=== PATIENT | male | born 1960 | race Caucasian/White ===

== ENCOUNTER → 2016-07-23 | Outpatient (CLI) | payer OTHER ==
[~2016-07-23] MED LIST: ADVAIR 1001 DISK W/D PO; ALBUTEROL17 GM INH; ALBUTEROL2.5 MG/0.5 IH; ASPIRIN81 MG PO; CHLORTHALIDONE25 MG PO; LISINOPRIL PO; LISINOPRIL10 MG PO; MOBIC; NO MEDICATIONS; NORVASC; PREDNISONE PO; PREDNISONE10 MG/DOSE PO; PRILOSEC; PRILOSEC PO; ULTRACET TABLE1 EACH PO; VIBRAMYCIN100 M1 PO; VISTARIL
--- NOTE | ~2016-07-23 | PFT ---
[id number] [facility] [address] [facility]. [place], [place] [address] [id number] O MR#: [id number] NAME: SOPHY SCHAFER ROOM: SEX: Haylee STUDY DATE/TIME: 07/23/2016 : 1960 AGE: 56 STUDY DESCRIPTION: Attending Physician: Melissa Mathews A.P.R.N. Referring Physician: Melissa Mathews A.P.R.N. Primary Care Physician: Chiquita Massey M.D. PULMONARY DIAGNOSTIC REPORT EXAM Pulmonary function test FINDINGS 1. Test meets ATS criteria for acceptability/repeatability. 2. Please see scanned sheet for flow-volume loops and actual lung volume values. 3. Spirometry shows moderate obstruction without significant bronchodilator response. 4. Lung volumes show significant airtrapping. 5. Diffusion capacity is moderately decreased. It corrects for alveolar ventilation. This is consistent with moderate COPD. Dictated by... Roderick Valle TD: 08/21/2016 21:03 JOB #: [id number] PULMONARY DIAGNOSTIC REPORT Page 1 of 1
--- NOTE | ~2016-07-23 | CR63 ---
[facility] A Service of [facility] & [facility] RADIOLOGY TEXT RESULTS PATIENT: SOPHY SCHAFER LOCATION: [facility] : 62 UNIT #: [id number] AGE: [address]: Melissa Mathews SEX: M ORDER DR: [id number] [facility] [address] [place], [place] [address] [id number] O MR#: [id number] Acc #: [id number] NAME: SOPHY SCHAFER : 1960 SEX: M STUDY DATE/TIME: 07/23/2016 11:27 UNIT: [facility] ROOM: STUDY DESCRIPTION: CR Chest 2 View Attending Physician: Melissa Mathews A.P.R.N. Referring Physician: Melissa Mathews A.P.R.N. Ordering Physician: Melissa Mathews A.P.R.N. Primary Care Physician: Chiquita Massey M.D. MEDICAL IMAGING REPORT This report is preliminary unless electronic signature is present EXAM Chest 2 views 07/23/2016 1127 hours HISTORY 55-year-old man with history of smoking, COPD complaining of shortness of air today. COMPARISON 03/21/2014 FINDINGS Upright PA and lateral views of the chest demonstrate normal cardiac, mediastinal and hilar contours. Lungs are hyperinflated but clear. There are old healed right rib fractures unchanged. No acute bone lesions. IMPRESSION Emphysematous and benign calcified granulomatous changes appear similar to 03/21/2014. There are no acute cardiopulmonary findings. Old healed right rib fractures are stable. Dictated by... Cristine Levine M.D. THIS IS AN ELECTRONICALLY VERIFIED REPORT Cristine Levine M.D. at 07/23/2016 1:43 PM SMM/kirstenr TD: 07/23/2016 13:00 JOB #: [id number] MEDICAL IMAGING REPORT Page 1 of 1 COPY
== END | disposition home or self-care (01) ==
LOC: CRC 10:32
DX: R06.00 Dyspnea, unspecified (principal); J44.9 Chronic obstructive pulmonary disease, unspecified; R06.83 Snoring; Z72.0 Tobacco use; R06.02 Shortness of breath; J84.10 Pulmonary fibrosis, unspecified
CPT/HCPCS: 71020; 94060; 94726; 94729

== ENCOUNTER 2016-08-07 17:42 | Inpatient (IN) | payer OTHER ==
--- NOTE | ~2016-08-07 | CR72 ---
[facility] A Service of [facility] & [facility] RADIOLOGY TEXT RESULTS PATIENT: SOPHY SCHAFER LOCATION: [facility] 468-01 : [birth year] UNIT #: [id number] AGE: [address]: Chiquita Massey MD SEX: M ORDER DR: [id number] [facility] [address] [facility]. [place], [place] [address] [id number] I MR#: [id number] Acc #: [id number] NAME: SOPHY SCHAFER : 1960 SEX: M STUDY DATE/TIME: 09/01/2016 4:49 UNIT: [facility] ROOM: [facility] STUDY DESCRIPTION: CR Chest Single View Portable Attending Physician: Chiquita Massey M.D. Ordering Physician: Aman Schreiber Primary Care Physician: Chiquita Massey M.D. MEDICAL IMAGING REPORT This report is preliminary unless electronic signature is present EXAM AP portable chest 09/01/2016 04:49 HISTORY 56-year-old male with pneumonia, cavitary lesion left lung. Shortness of breath and cough. Symptoms began 08/07/2016. History of smoking. COMPARISON PA and lateral chest radiograph 08/29/2016, CT chest with contrast 08/27/2016. FINDINGS Cavitary lesion in the left upper lobe with surrounding alveolar disease is again noted. It is not thought to be significantly changed. Right lung remains clear. No pneumothorax or pleural effusion. Heart size is within normal limits. Emphysematous changes are demonstrated better advantage on previous chest CT. Old right rib fractures incidentally noted. IMPRESSION 1. Thick-walled cavitary focus in the left upper lobe with surrounding parenchymal or airspace disease without significant change. 2. Emphysema. Dictated by... Milka Barbosa M.D. THIS IS AN ELECTRONICALLY VERIFIED REPORT Milka Barbosa M.D. at 09/01/2016 9:58 PM Peggy TD: 09/01/2016 06:30 JOB #: [id number] [facility] A Service of [facility] RADIOLOGY TEXT RESULTS PATIENT: SOPHY SCHAFER LOCATION: [facility] 468-01 : 62 UNIT #: [id number] AGE: [address]: Chiquita Massey MD SEX: M ORDER DR: MEDICAL IMAGING REPORT Page 1 of 1 COPY
--- NOTE | ~2016-08-07 | CR63 ---
[facility] A Service of [facility] & [facility] RADIOLOGY TEXT RESULTS PATIENT: SOPHY SCHAFER LOCATION: [facility] 468-01 : [birth year] UNIT #: [id number] AGE: [address]: Chiquita Massey MD SEX: M ORDER DR: [id number] [facility] [address] [place], [place] [address] [id number] I MR#: [id number] Acc #: [id number] NAME: SOPHY SCHAFER : 1960 SEX: M STUDY DATE/TIME: 08/29/2016 8:12 UNIT: [facility] ROOM: [facility] STUDY DESCRIPTION: CR Chest 2 View Attending Physician: Chiquita Massey M.D. Ordering Physician: Tiffani Schreiber M.D. Primary Care Physician: Chiquita Massey M.D. MEDICAL IMAGING REPORT This report is preliminary unless electronic signature is present EXAM 2-view chest dated 08/29/2016 COMPARISON Single view of the chest dated 08/26/2016 HISTORY Shortness of air, pneumonia since 08/07/2016. FINDINGS Frontal single view of the chest was obtained. Patient had dense consolidation, pneumonia in the left upper and mid lung which has been evolving and decreasing over time. Refer to CT chest from 08/08/2016. Possible development of a cavity in the region of the pneumonia cannot be completely excluded given the U-shaped appearance of the opacity instead of the dense consolidation previously noted in this region. It does not appear to have significantly worsened when compared to the prior study from 3 days ago. No pleural effusion in the region of the lateral CP angles. Minimal horizontally linear opacity is noted in the right midlung zone. It could represent minimal atelectatic change or mild pleural effusion in the right horizontal fissure. There appear to be some bony irregularity along the right lateral mid rib suggestive of callus formation and healing of an old 2 consecutive rib fractures in the lateral segment. IMPRESSION 1. Dense consolidation was noted in the CT chest from 08/08/2016. The consolidation has partly cleared since then and there is a lucency with peripheral opacity noted at this time. It could be related to clearing of the consolidation or development of small cystic/cavitary spaces. This was also seen in the prior chest x-ray from 08/26/2016. Along the inferior aspect of this region there is slightly increased alveolar opacity when compared to the most recent chest x-ray from 3 [facility] A Service of [facility] & [facility] RADIOLOGY TEXT RESULTS PATIENT: SOPHY SCHAFER LOCATION: [place] [address] : [birth year] UNIT #: [id number] AGE: [address]: Chiquita Massey MD SEX: M ORDER DR: jm. Continued followup is suggested. 2. Linear horizontal opacity in the region of the right mid lung zone could be related to minimal layering of pleural fluid in the right horizontal fissure or pleural thickening. Stable. Dictated by... Sujey Lomas M.D. THIS IS AN ELECTRONICALLY VERIFIED REPORT Sujey Lomas M.D. at 08/31/2016 2:58 PM CPR/lora TD: 08/29/2016 11:17 JOB #: [id number] MEDICAL IMAGING REPORT Page 1 of 1 COPY
--- NOTE | ~2016-08-07 | CO ---
Unit #: [id number] #: [id number] Patient: SOPHY SCHAFER [id number] [address] [address] [id number] Padmini MR#: [id number] NAME: SOPHY SCHAFER ROOM: [facility] Age: 56 Sex: M Admission Date: 08/07/2016 : 1960 Attending Physician: Chiquita Massey M.D. Primary Care Physician: Chiquita Massey M.D. Requesting Physician: Chiquita Massey M.D. Consultation Date: 08/08/2016 CONSULTATION REPORT REASON FOR CONSULTATION 1. Acute renal failure. 2. Urinary retention. 3. Difficult Chavez catheter placement. HISTORY OF PRESENT ILLNESS The patient is a 56-year-old male who presented with fevers, chills and hypoxia, as well as acute renal failure. He has recently been intubated emergently and so the entire history is coming from his chart and my discussion with the nursing staff. The nursing staff was unable to place a Chavez catheter. His creatinine was 2.9 this morning. It was 3.5 yesterday evening and 0.9 in 12/2013. PAST MEDICAL HISTORY 1. Chronic obstructive pulmonary disease. 2. Gastroesophageal reflux disease. 3. Hypertension. 4. Tobacco abuse. PAST SURGICAL HISTORY Cholecystectomy. SOCIAL HISTORY Positive for tobacco. No history of alcohol or drug use. ALLERGIES No known drug allergies. HOME MEDICATIONS 1. Norvasc. 2. Prilosec. 3. Zestril. 4. Mobic. REVIEW OF SYSTEMS Currently unobtainable as the patient is on a ventilator, but per the chart he had chest pain, shortness of breath. PHYSICAL EXAMINATION GENERAL: The patient is intubated and sedated. VITALS: Temperature 96.8, blood pressure 137/62, pules 109, respiratory rate 19. HEENT: Normocephalic, atraumatic. NECK: Supple. Unit #: [id number] #: [id number] Patient: SOPHY SCHAFER CHEST: The patient has even chest rises. ABDOMEN: Soft, nontender and nondistended. : Penis normal. Meatus normal. I passed a [place] catheter. While his urethra was tight, there was no obvious obstruction. He had a return of clear urine. EXTREMITIES: No clubbing, cyanosis or edema. DIAGNOSTIC STUDIES LABORATORY: Creatinine 2.9, white blood cell count 10.3, hemoglobin 14.6. Urine culture is pending. Blood cultures are no growth to date. ASSESSMENT/PLAN 1. Acute renal failure. We will continue his Chavez catheter. Will check a renal ultrasound. 2. Urinary retention. Catheter has been placed. We will leave this until he is more stable. Dictated by... Isidoro Isabel M.D. Teresita TD: 08/09/2016 07:03 JOB #: [id number] CONSULTATION REPORT Page 1 of 1 X Isidoro Isabel MD X CONSULTATION REPORT
--- NOTE | ~2016-08-07 | CO ---
Unit #: [id number] #: [id number] Patient: SOPHY MOULTON [id number] [facility] [address] [facility]. [place], [place] [address] [id number] I MR#: [id number] NAME: SOPHY MOULTON ROOM: 468 Age: 56 Sex: M Admission Date: 08/07/2016 : 1960 Attending Physician: Chiquita Massey M.D. Primary Care Physician: Chiquita Massye M.D. Consultation Date: 08/28/2016 CONSULTATION REPORT REASON FOR CONSULTATION Followup. DISCUSSION Mr. Sophy Moulton is a 56-year-old male, seen in room 468, bed 1 on 08/28/2016 at [facility]. The patient diagnosed with delirium, psychosis. The patient is tolerating medication fairly well. Currently, has no sitter. Responded fairly well with Haldol started couple of days ago. The patient is not having any side effects, unable to give any reliable information, still confused, guarded and paranoid. Vital signs; temperature 98.1, pulse 119, respirations 18, blood pressure 96/39, oxygen saturation 99%. REVIEW OF SYSTEMS Complete review of systems is unremarkable. MENTAL STATUS EXAMINATION General appearance, the patient dressed in hospital attire. Attention span and concentration, poor. Speech, minimal. Orientation, unable to assess. Mood and affect, labile. Thought process, tangential. Thought content, guarded and paranoid. Recent and remote memory, poor. Language, the patient not answering any question at this time. Fund of knowledge, poor. Insight and judgment, impaired. DIAGNOSES Psychiatric: Delirium, F05; psychosis, not otherwise specified, F29.0. ASSESSMENT AND PLAN Advised to continue with current treatment at this time. Continue with current medication. If needed, consider further adjustment of medication. Please feel free to call if any questions, telephone #[phone]. Dictated by... Brian Martinez M.D. JANNETTE/ashu TD: 08/28/2016 23:35 JOB #: [id number] Unit #: [id number] #: [id number] Patient: SOPHY MOULTON CONSULTATION REPORT Page 1 of 1 X Brian Martinez MD CONSULTATION REPORT
--- NOTE | ~2016-08-07 | CO ---
Unit #: [id number] #: [id number] Patient: SOPHY SCHAFER [id number] [address] [place], [place] [address] [id number] I MR#: [id number] NAME: SOPHY SCHAFER ROOM: CIC3 Age: 56 Sex: M Admission Date: 08/07/2016 : 1960 Attending Physician: Chiquita Massey M.D. Primary Care Physician: Chiquita Massey M.D. Consultation Date: 08/18/2016 CONSULTATION REPORT REASON FOR CONSULTATION Antibiotic management. HISTORY OF PRESENT ILLNESS This is a 56-year-old male who is currently on the ventilator and unable to provide any history. History has been obtained via discussion with staff and chart review. The patient has a history of COPD and recently had a normal chest x-ray about a week or 2 ago. The patient then began having chills and fever up to 101 degrees Fahrenheit. It was associated with some pain, per the H and P. The patient went to an outside hospital after he developed some body aches. He also had developing productive sputum. The patient required intubation due to decreasing sats. The patient has remained on the ventilator since admission and has been on Zosyn, azithromycin and Zyvox. ID was asked to evaluate for antibiotic management. The patient recently had a bronchoscopy done today, which still showed some thick secretions, and there was also some trauma and ulcers at the end of his ET tube site, but per discussion with pulmonary, did not appear to be herpetic at the time. PAST MEDICAL HISTORY 1. COPD. 2. Hypertension. 3. GERD. 4. Tobacco abuse. PAST SURGICAL HISTORY Cholecystectomy. ALLERGIES No known allergies. MEDICATIONS The patient is on multiple sedative meds, but he is not on any pressor support. He is on Zyvox, Zosyn and azithromycin. For other medications, please refer to the patient's MAR. SOCIAL HISTORY The patient lives with others. He has a history of tobacco abuse but no alcohol or drug use. REVIEW OF SYSTEMS Unable to obtain, as the patient is currently on the ventilator. Unit #: [id number] #: [id number] Patient: SOPHY SCHAFER PHYSICAL EXAMINATION VITAL SIGNS: Temperature is 98.7, pulse 77, blood pressure 116/62, respiratory rate 21. GENERAL: This is a sedated male who is currently on the ventilator. HEENT: His pupils are sluggish. NECK: His neck is supple. CARDIOVASCULAR: S1, S2. Regular rate and rhythm. PULMONARY: Diminished throughout. ABDOMEN: Positive bowel sounds. Soft and rounded. EXTREMITIES: No clubbing or cyanosis but positive edema, mainly in the upper extremities. DIAGNOSTIC STUDIES LABS: BUN 37, creatinine 0.8, sodium 140, potassium 3.5, chloride 94, CO2 38, bilirubin 0.5, AST 21, ALT 69, lactic acid 1.7 on admission, procalcitonin on admission was 23.59. White blood cell count 10.3, hemoglobin 11.9, hematocrit 35.9, platelets 160. Flu screen was negative. August 12 sputum culture showed MRSA; 08/12 blood cultures are currently negative; 08/10 bronchoscopy showed MRSA; 08/09 sputum with MRSA; 08/08 sputum culture with MRSA. IMAGING: Chest x-ray shows improvement since the CT scan on 08/08/2016 with some patchy airspace infiltrate in the left upper lobe, probable developing cystic airspace in the left upper chest. Right lung is clear. CT scan of the chest done on 08/08 shows extensive infiltrate in the left upper lobe. IMPRESSION This is a 56-year-old male with COPD, now with severe left-sided MRSA pneumonia. The patient has no other positive cultures. Oxygenation appears to be improving after discussion with the pulmonology team. The patient still, however, requires the ventilator. At this time, would recommend to discontinue azithromycin and Zosyn and continue Zyvox (no objection to changing to oral). The patient may need repeat CT scan if he continues to have positive cultures and/or unable to wean from the ventilator. Will continue to follow the patient's CBC. The patient is also to have an ultrasound of his upper extremities due to edema. Will continue to follow along with the patient. Thank you for allowing us to participate in the care of this patient. Further recommendations to follow pending the patient's clinical course. Dictated by... Lissa Hobson A.P.R.N. for Roderick Camacho/maxx TD: 08/18/2016 10:25 JOB #: [id number] Unit #: [id number] #: [id number] Patient: SOPHY SCHAFER CONSULTATION REPORT Page 1 of 1 X X CONSULTATION REPORT
--- NOTE | ~2016-08-07 | CR72 ---
[facility] A Service of [facility] & [facility] RADIOLOGY TEXT RESULTS PATIENT: SOPHY SCHAFER LOCATION: [address] : [birth year] UNIT #: [id number] AGE: [address]: Chiquita Massey MD SEX: M ORDER DR: [id number] [facility] [address] [facility] [place], [place] [address] [id number] I MR#: [id number] Acc #: [id number] NAME: SOPHY SCHAFER : 1960 SEX: M STUDY DATE/TIME: 08/18/2016 6:20 UNIT: [facility] ROOM: [facility] STUDY DESCRIPTION: CR Chest Single View Portable Attending Physician: Chiquita Massey M.D. Ordering Physician: Tiffani Schreiber M.D. Primary Care Physician: Chiquita Massey M.D. MEDICAL IMAGING REPORT This report is preliminary unless electronic signature is present EXAM Portable chest one view, 08/18/16 at 6:20 COMPARISON: 08/17/16 at 6:11 HISTORY: Respiratory failure, hypoxemia and sepsis. Cough, fever and chills. FINDINGS ET tube remains tip 4 to 5 cm above the jeanna and NG tube and right arm PICC line remain. Coarse chronic left upper lung changes are stable. No new abnormality is seen. There is no apparent effusion or pneumothorax, no convincing interval change since 08/17. Dictated by... Vinicio Heath M.D. THIS IS AN ELECTRONICALLY VERIFIED REPORT Vinicio Heath M.D. at 08/18/2016 3:52 PM LEAH/harjinder TD: 08/18/2016 15:18 JOB #: [id number] MEDICAL IMAGING REPORT Page 1 of 1 COPY
--- NOTE | ~2016-08-07 | CR72 ---
[facility] A Service of [facility] RADIOLOGY TEXT RESULTS PATIENT: SOPHY SCHAFER LOCATION: [address] : [birth year] UNIT #: [id number] AGE: [address]: Chiquita Massey MD SEX: M ORDER DR: [id number] [facility] [address] [facility] [place], [place] [address] [id number] I MR#: [id number] Acc #: [id number] NAME: SOPHY SCHAFER : 1960 SEX: M STUDY DATE/TIME: 08/17/2016 6:11 UNIT: [facility] ROOM: [facility] STUDY DESCRIPTION: CR Chest Single View Portable Attending Physician: Chiquita Massey M.D. Ordering Physician: Ca Ga M.D. Primary Care Physician: Chiquita Massey M.D. MEDICAL IMAGING REPORT This report is preliminary unless electronic signature is present EXAM AP portable chest 08/17/2016 HISTORY Respiratory failure. Follow up cardiopulmonary status. Pneumonia. TECHNIQUE AP portable upright chest x-ray. FINDINGS The examination shows no change since yesterday. Endotracheal tube, right arm PICC in good position. Feeding tube below the diaphragm. Persistent patchy airspace infiltrate in the left upper lobe, unchanged since the prior two studies but improved since the chest CT performed on 08/08/2016. Probable developing cystic airspace in the left upper chest. No pneumothorax or pleural effusion. Right lung remains clear. IMPRESSION Stable portable chest radiograph, unchanged since yesterday. Support devices in good position. Dictated by... Uri Saunders M.D. THIS IS AN ELECTRONICALLY VERIFIED REPORT Uri Saunders M.D. at 08/17/2016 3:54 PM ANA MARIA/chuck TD: 08/17/2016 09:45 JOB #: [id number] MEDICAL IMAGING REPORT [facility] A Service of [facility] RADIOLOGY TEXT RESULTS PATIENT: SOPHY SCHAFER LOCATION: [place] [address]-21 : [birth year] UNIT #: [id number] AGE: [address]: Chiquita Massey MD SEX: M ORDER DR: Page 1 of 1 COPY
--- NOTE | ~2016-08-07 | US77 ---
[facility] A Service of [facility] & [facility] RADIOLOGY TEXT RESULTS PATIENT: SOPHY SCHAFER LOCATION: [address] : [birth year] UNIT #: [id number] AGE: [address]: Chiquita Massey MD SEX: M ORDER DR: [id number] [facility] [address] [place], [place] [address] [id number] I MR#: [id number] Acc #: [id number] NAME: SOPHY SCHAFER : 1960 SEX: M STUDY DATE/TIME: 08/09/2016 8:44 UNIT: [facility] ROOM: [facility] STUDY DESCRIPTION: US Kidney Bilateral Complete Attending Physician: Chiquita Massey M.D. Ordering Physician: Chiquita Massey M.D. Primary Care Physician: Chiquita Massey M.D. MEDICAL IMAGING REPORT This report is preliminary unless electronic signature is present EXAM Renal ultrasound, 08/09/2016. HISTORY Acute renal failure, abnormal renal function tests on 08/09/2016, elevated BUN of 39, elevated creatinine of 2.9. Abnormally low GFR of 23.3. COPD and benign essential hypertension. FINDINGS The right kidney measures 11.7 cm, while the left kidney measures 11.7 cm in longitudinal dimensions. There is no evidence of hydronephrosis or nephrolithiasis. No cystic or solid mass lesions were seen on either kidney and there is normal renal cortical echogenicity. In the bladder was empty for the exam and therefore poorly visualized. IMPRESSION 1. Negative renal ultrasound. 2. The bladder is empty for the exam and therefore poorly visualized. Dictated by... Romeo Mooney M.D. THIS IS AN ELECTRONICALLY VERIFIED REPORT Romeo Mooney M.D. at 08/10/2016 10:25 AM ALIZA/imani TD: 08/09/2016 14:11 JOB #: [id number] MEDICAL IMAGING REPORT Page 1 of 1 COPY
--- NOTE | ~2016-08-07 | US140 ---
[facility] A Service of [facility] & [facility] RADIOLOGY TEXT RESULTS PATIENT: SOPHY SCHAFER LOCATION: [address]21 : [birth year] UNIT #: [id number] AGE: [address]: Chiquita Massey MD SEX: M ORDER DR: [id number] [facility] [address] [place], [place] [address] [id number] I MR#: [id number] Acc #: [id number] NAME: SOPHY SCHAFER : 1960 SEX: M STUDY DATE/TIME: 08/18/2016 11:39 UNIT: [facility] ROOM: [facility] STUDY DESCRIPTION: UE Veins Unilat or Ltd Stdy Attending Physician: Chiquita Massey M.D. Ordering Physician: Chiquita Massey M.D. Primary Care Physician: Chiquita Massey M.D. MEDICAL IMAGING REPORT This report is preliminary unless electronic signature is present EXAM Right upper extremity venous ultrasound 08/18/2016. HISTORY History of right extremity swelling for a couple of days, PICC leaking x1 day. No history of DVT. On Lovenox. Real-time ultrasonography of the right upper extremity venous structures performed. Lin-scale color Doppler, Doppler pulse-wave interrogation utilized. The right internal jugular vein, subclavian vein, axillary vein are patent. There is a right upper extremity approach PICC from basilic vein approach. The catheter shows no evidence of pericatheter thrombus on these images. The venous structures compress to the level of the PICC with compression maneuvers. The brachial veins are patent with normal compressibility. The basilic and cephalic veins show normal compressibility. Normal color Doppler interrogation with [id number] flow demonstrated. Note is made of subcutaneous edema in the right upper extremity. IMPRESSION 1. No evidence of right upper extremity deep or superficial venous thrombosis at time of this examination. 2. Right upper extremity approach PICC from the basilic vein approach. No pericatheter thrombus is seen. Dictated by... Pipe Raman M.D. THIS IS AN ELECTRONICALLY VERIFIED REPORT Pipe Raman M.D. at 08/19/2016 2:37 PM SARAK/harjinder [facility]. [facility] A Service of [facility] & [facility] RADIOLOGY TEXT RESULTS PATIENT: SOPHY SCHAFER LOCATION: [facility]3-21 : [birth year] UNIT #: [id number] AGE: [address]: Chiquiat Massey MD SEX: M ORDER DR: TD: 08/18/2016 14:16 JOB #: [id number] MEDICAL IMAGING REPORT Page 1 of 1 COPY
--- NOTE | ~2016-08-07 | CR72 ---
[facility] A Service of [facility] & [facility] RADIOLOGY TEXT RESULTS PATIENT: SOPHY SCHAFER LOCATION: [address]21 : [birth year] UNIT #: [id number] AGE: [address]: Chiquita Massey MD SEX: M ORDER DR: [id number] [facility] [address] [place], [place] [address] [id number] I MR#: [id number] Acc #: [id number] NAME: SOPHY SCHAFER : 1960 SEX: M STUDY DATE/TIME: 08/16/2016 4:03 UNIT: [facility] ROOM: [facility] STUDY DESCRIPTION: CR Chest Single View Portable Attending Physician: Chiquita Massey M.D. Ordering Physician: Donnell Sanches M.D. Primary Care Physician: Chiquita Massey M.D. MEDICAL IMAGING REPORT This report is preliminary unless electronic signature is present EXAM Portable chest INDICATIONS Follow up infiltrates and endotracheal tube. Cough and fever. FINDINGS This portable view of the chest shows no change from yesterday's study with patchy infiltrate in the left upper lobe. The PIC catheter, endotracheal tube and Dobbhoff tube are stable. Dictated by... Robbie Ward M.D. THIS IS AN ELECTRONICALLY VERIFIED REPORT Robbie Ward M.D. at 08/16/2016 9:55 PM FEL/psc TD: 08/16/2016 19:40 JOB #: [id number] MEDICAL IMAGING REPORT Page 1 of 1 COPY
--- NOTE | ~2016-08-07 | CR72 ---
[facility] A Service of [facility] & [facility] RADIOLOGY TEXT RESULTS PATIENT: SOPHY SCHAFER LOCATION: [address]21 : [birth year] UNIT #: [id number] AGE: [address]: Chiquita Massey MD SEX: M ORDER DR: [id number] [facility] [address] [place], [place] [address] [id number] I MR#: [id number] Acc #: [id number] NAME: SOPHY SCHAFER : 1960 SEX: M STUDY DATE/TIME: 08/12/2016 0326 UNIT: [facility] ROOM: [facility] STUDY DESCRIPTION: CR Chest Single View Portable Attending Physician: Chiquita Massey M.D. Ordering Physician: Ca Ga M.D. Primary Care Physician: Chiquita Massey M.D. MEDICAL IMAGING REPORT This report is preliminary unless electronic signature is present EXAM Portable chest, 08/12 at 0326. INDICATION Respiratory failure, hypoxia and sepsis. Fever. FINDINGS AP portable chest compared with 08/11/2016. Tubes and lines are unchanged. Heart size stable. Coarse infiltrates in the left lung with upper lobe cavitation are grossly stable in the short interval. There has been slight worsening in infiltrate in the right upper lobe. The right base is stable. No pneumothorax. Dictated by... Igor Mondragon Jr., M.D. THIS IS AN ELECTRONICALLY VERIFIED REPORT Igor Mondragon Jr., M.D. at 08/12/2016 9:25 PM ANN MARIE/imani TD: 08/12/2016 09:50 JOB #: [id number] MEDICAL IMAGING REPORT Page 1 of 1 COPY
--- NOTE | ~2016-08-07 | EKG ---
PATIENT: SOPHY SCHAFER UNIT #: [id number] Ventricular Rate: 106 BPM Atrial Rate: 106 BPM P-R Interval: 144 ms QRS Duration: 92 ms Q-T Interval: 318 ms QTC Calculation(Bezet): 422 ms P [place]: 72 degrees Calculated R [place]: 93 degrees Calculated T [place]: 66 degrees Diagnosis Line: Sinus tachycardia Diagnosis Line: Rightward axis Diagnosis Line: Borderline ECG Diagnosis Line: When compared with ECG of 07-AUG-2016 18:52, Diagnosis Line: (unconfirmed) Diagnosis Line: No significant change was found Diagnosis Line: Confirmed by NADER GOMEZ MD ([id number]) on Diagnosis Line: 08/15/2016 4:52:55 PM INTERPRETING MD: JOBY
--- NOTE | ~2016-08-07 | CR63 ---
[facility] A Service of [facility] & [facility] RADIOLOGY TEXT RESULTS PATIENT: SOPHY SCHAFER LOCATION: [facility]3-21 : 62 UNIT #: [id number] AGE: [address]: Chiquita Massey MD SEX: M ORDER DR: [id number] [place] [id number] I MR#: [id number] Acc #: [id number] NAME: SOPHY SCHAFER : 1960 SEX: M STUDY DATE/TIME: 08/07/2016 18:50 UNIT: [facility] ROOM: [facility] STUDY DESCRIPTION: CR Chest 2 View Attending Physician: Chiquita Massey M.D. Ordering Physician: Staff Doctor Not On Primary Care Physician: Chiquita Massey M.D. MEDICAL IMAGING REPORT This report is preliminary unless electronic signature is present. EXAM PA and lateral chest HISTORY Shortness of air and cough and fever for 3 days. FINDINGS 2 views of the chest demonstrate dense infiltrate in the superior left upper lobe, new compared to 07/23/2016. This could be secondary to left upper lobe pneumonia, but is nonspecific. Followup chest x-ray after appropriate assessment and treatment is recommended. No additional infiltrates. Cardiac and mediastinal contours are normal. Old right rib fractures. Dictated by... Jose G Rodarte M.D. THIS IS AN ELECTRONICALLY VERIFIED REPORT Jose G Rodarte M.D. at 08/08/2016 11:19 PM DFL/rnr TD: 08/08/2016 02:55 JOB #: [id number] MEDICAL IMAGING REPORT Page 1 of 1
--- NOTE | ~2016-08-07 | CR72 ---
[facility] A Service of [facility] & [facility] RADIOLOGY TEXT RESULTS PATIENT: SOPHY SCHAFER LOCATION: [address]-21 : [birth year] UNIT #: [id number] AGE: [address]: Chiquita Massey MD SEX: M ORDER DR: [id number] [facility] [address] [place], [place] [address] [id number] I MR#: [id number] Acc #: [id number] NAME: SOPHY SCHAFER : 1960 SEX: M STUDY DATE/TIME: 08/08/2016 22:49 UNIT: [facility] ROOM: [facility] STUDY DESCRIPTION: CR Chest Single View Portable Attending Physician: Chiquita Massey M.D. Ordering Physician: Chiquita Massey M.D. Primary Care Physician: Chiquita Massey M.D. MEDICAL IMAGING REPORT This report is preliminary unless electronic signature is present EXAM Portable chest 08/08 at 22:49 INDICATIONS Endotracheal tube placement today. FINDINGS AP portable chest compared with earlier this evening. et tube is well positioned in the mid trachea. Extensive infiltrate in the left lung is unchanged. Right lung is clear. No pneumothorax. Dictated by... Igor Mondragon Jr., M.D. THIS IS AN ELECTRONICALLY VERIFIED REPORT Igor Mondragon Jr., M.D. at 08/09/2016 2:40 AM ANN MARIE/janis TD: 08/09/2016 02:23 JOB #: [id number] MEDICAL IMAGING REPORT Page 1 of 1 COPY
--- NOTE | ~2016-08-07 | DS ---
Unit #: [id number] #: [id number] Patient: SOPHY SCHAFER [id number] [address] [place], [place] [address] [id number] I MR#: [id number] NAME: SOPHY SCHAFER ROOM: [facility] Age: 56 Sex: M Admission Date: 08/07/2016 : 1960 Discharge Date: 09/01/2016 Attending Physician: Chiquita Massey M.D. Primary Care Physician: Chiquita Massey M.D. DISCHARGE SUMMARY FINAL DIAGNOSES 1. Acute respiratory failure, status post intubation, doing much better at this time. 2. MRSA pneumonia with gravitation. 3. Pancytopenia, most likely secondary to antibiotics which were changed to vancomycin. 4. Status post acute hypoxic respiratory failure. 5. Chronic obstructive pulmonary disease exacerbation. 6. Status post acute kidney injury. 7. Urinary stricture, status post catheter placement by Dr. Isabel. 8. Hypertension. 9. History of anxiety. 10. Toxic metabolic encephalopathy secondary to the above. 11. Ongoing tobacco abuse. DISCHARGE MEDICATIONS 1. IV vancomycin 750 mg q.8 h. until 09/20/2016. 2. Nebulizer treatment with albuterol and ipratropium q.i.d. 3. Prednisone tapering dose. 4. Tylenol 650 mg q.4 h. p.r.n. 5. Haldol 2.5 mg q.6 h. p.r.n. 6. Furosemide 20 mg daily. 7. Hydrocodone/acetaminophen 5/325 mg 1 tablet q.8 h. p.r.n. 8. Prilosec [address] Tiffani Schreiber from pulmonary services. Dr. Crow Quispe from renal services. Dr. Isidoro Isabel from urology services. Dr. Ceron from neurology services. Dr. Brian Martinez from psychiatry services. DIAGNOSTIC DATA LABORATORY: At discharge, sodium 136, potassium 3.7, chloride 101, BUN 10, creatinine 0.6, calcium 8.0. CBC shows white blood cell count 2.5, hemoglobin 9.1, hematocrit 26.1, platelet count 76. HIV was nonreactive. B12 440, folic acid 14.3. IMAGING: CT scan of the head without contrast done on 08/26/2016 shows no acute findings. Ultrasound of the right upper extremity was done, which was negative for any DVT. Unit #: [id number] #: [id number] Patient: SOPHY SCHAFER CT scan of the chest was done on admission, which showed extensive dense infiltrate in the mid and superior left upper lobe corresponding to infiltrate on chest x-ray. Ultrasound of the kidneys showed negative renal ultrasound. Repeat CT scan of the chest was done on 08/27/2016, which showed extensive pneumonia in the left upper lobe has cavitated since the previous scan of 08/08/2016. There is a large irregular thick-walled cavity occupying much of the left upper lobe that contains a few small air fluid levels. Most recent x-ray was done on 09/01/2016, which shows thick-walled cavitary focus in the left upper lobe with surrounding parenchymal or airspace disease without significant change and emphysema is present. HOSPITAL COURSE Mr. Sophy Schafer is a 56-year-old male who is very well known to me from the office setting. He has a history of chronic obstructive pulmonary disease, followed by Dr. Sanches. He came with the complaint of shortness of breath and chest tightness. The patient was admitted to telemetry and then later on sent to the ICU for acute hypoxic respiratory failure, left upper lobe pneumonia, hemoptysis and chronic obstructive pulmonary disease exacerbation and possible sepsis. The patient also had acute renal failure at that time, prerenal versus ATN. The patient was admitted to the ICU at [facility]. Dr. Schreiber was consulted and the patient was intubated. Please note the patient was intubated for a long period of time and had a lengthy stay during this hospitalization. The patient was started on broad spectrum antibiotics. The patient continued to have high fevers and infectious disease was involved. The patient is doing much better at this time. The patient's sputum was positive for MRSA and was treated with Zyvox and Zosyn in the beginning. The patient started having pancytopenia, so that has been changed and now the patient is on clindamycin and vancomycin. The patient's pancytopenia seems to have improved and that needs to be observed as an outpatient. Altered mental status: The patient did have altered mental status after ICU, most likely psychosis. Dr. Brian Martinez was involved in the patient's care. The patient was treated with Haldol and he is doing much better at this time. He is awake, alert and oriented times three. Acute kidney failure: The patient was seen by Dr. Quispe and his kidney functions have improved drastically. His BUN on discharge is 10. On admission it was 64. Creatinine was 3.5 and today creatinine is 0.6. His renal functions have improved a lot. We do need to continue to observe as he is on vancomycin. The patient's CT scan is abnormal with thick-walled cavitation. The patient needs to continue antibiotics until 09/11/2016. The patient will need to follow with tool machine setup operator, Dr. Schreiber. He will need repeat CT scan done in a four to six weeks or so. Chronic obstructive pulmonary disease: The patient is on a tapering dose of steroid and that needs to be completed. The patient does have a history of tobacco abuse. Tobacco cessation counseling has been done. Unit #: [id number] #: [id number] Patient: SOPHY SCHAFER PHYSICAL EXAMINATION VITALS: Blood pressure 110/55, respiratory rate 18, pulse 102, temperature 97.7, oxygen saturation 98%. HEENT: Head is normocephalic. CHEST: Decreased air entry in the left upper lobe, otherwise stable. HEART: S1 and S2 positive. Regular rhythm. ABDOMEN: Soft. EXTREMITIES: Negative edema. DISCHARGE INSTRUCTIONS 1. The patient is being discharged to the rehab facility in stable condition. 2. Medications as per medication reconciliation. 3. CBC and BMP to be done in two to three days. 4. Pharmacy needs to be involved for dosing of vancomycin. 5. [facility]. 6. Tobacco cessation counseling done. 7. Please note the patient was on blood pressure medication on admission and that has been taken off because of hypotension. That may need to be restarted. Dictated by... Roderick Perez TD: 09/01/2016 13:20 JOB #: [id number] DISCHARGE SUMMARY Page 1 of 1 X Chiquita Massey MD X DISCHARGE SUMMARY
--- NOTE | ~2016-08-07 | EKG ---
PATIENT: SOPHY SCHAFER UNIT #: [id number] Ventricular Rate: 105 BPM Atrial Rate: 105 BPM P-R Interval: 118 ms QRS Duration: 86 ms Q-T Interval: 338 ms QTC Calculation(Bezet): 446 ms P [place]: 82 degrees Calculated R [place]: 101 degrees Calculated T [place]: 70 degrees Diagnosis Line: Sinus tachycardia Diagnosis Line: Rightward axis Diagnosis Line: Borderline ECG Diagnosis Line: No previous ECGs available Diagnosis Line: Confirmed by ROSARIO STEIN MD ([id number]) on 08/19/2016 Diagnosis Line: 10:47:47 PM INTERPRETING MD: EMIL BLOCK
--- NOTE | ~2016-08-07 | CR72 ---
[facility] A Service of [facility] & [facility] RADIOLOGY TEXT RESULTS PATIENT: SOPHY SCHAFER LOCATION: [address] : [birth year] UNIT #: [id number] AGE: [address]: Chiquita Massey MD SEX: M ORDER DR: [id number] [facility] [address] [place], [place] [address] [id number] I MR#: [id number] Acc #: [id number] NAME: SOPHY SCHAFER : 1960 SEX: M STUDY DATE/TIME: 08/08/2016 21:15 UNIT: [facility] ROOM: [facility] STUDY DESCRIPTION: CR Chest Single View Portable Attending Physician: Chiquita Massey M.D. Ordering Physician: Chiquita Massey M.D. Primary Care Physician: Chiquita Massey M.D. MEDICAL IMAGING REPORT This report is preliminary unless electronic signature is present EXAM Portable chest 08/08/2016 HISTORY Respiratory failure, shortness of breath tonight. Endotracheal tube placement, COPD exacerbation emphysema and cough. Smoking history for 35 years. Benign essential hypertension. FINDINGS The cardiac and mediastinal structures are stable compared with 08/07/2016. Endotracheal tube has been inserted with the tip approximately 3 cm above the jeanna. Interval increase in the dense airspace consolidation in the left upper lobe and left lower lobe. Right lung remains clear. There are no pleural effusions. IMPRESSION 1. Interval insertion of endotracheal tube with the tip 3 cm above the jeanna compared with 08/07/2016. 2. Increase in the airspace consolidation in the left upper lobe and left lower lobe. Dictated by... Romeo Mooney M.D. THIS IS AN ELECTRONICALLY VERIFIED REPORT Romeo Mooney M.D. at 08/09/2016 1:15 PM ALIZA/janis TD: 08/08/2016 23:53 JOB #: [id number] MEDICAL IMAGING REPORT Page 1 of 1 COPY
--- NOTE | ~2016-08-07 | CO ---
Unit #: [id number] #: [id number] Patient: SOPHY MOULTON [id number] [address] [place], [place] [address] [id number] I MR#: [id number] NAME: SOPHY MOULTON ROOM: [facility] Age: 56 Sex: M Admission Date: 08/07/2016 : 1960 Attending Physician: Chiquita Massey M.D. Primary Care Physician: Chiquita Massey M.D. Consultation Date: 08/08/2016 CONSULTATION REPORT REASON FOR CONSULTATION Renal insufficiency. Thank you very much for asking us to see this patient in consultation. HISTORY OF PRESENT ILLNESS Mr. Sophy Moulton is a 56-year-old, male, who has a history of COPD, hypertension, anxiety, who presented to the hospital yesterday after 2 to 3 days of increasing shortness of breath, cough. He states intermittent hemoptysis, some chest pain with severe coughing, aches and pains overall, fever, also very dark stools. Upon presentation, he was noted to have a BUN and creatinine of 35 and 3.5, today it is 39 and 2.9 respectively. I was asked to see the patient. The patient states he has never been told he had any kidney problems that he knows of. He did have a creatinine in 2013 that was 0.9. He is on Mobic, he states daily. He denies any other nonsteroidals. He denies ever having kidney problems or kidney stones, frequent UTIs. PAST MEDICAL HISTORY History of anxiety, history of COPD, history of hypertension, history of sleep apnea, status post cholecystectomy. ALLERGIES No known drug allergies. SOCIAL HISTORY Positive smoker. He drinks about 3 to 4 drinks a week he states. MEDICATIONS At home include Norvasc, Prilosec, Vistaril, and Mobic. He is on Rocephin, Zithromax, Solu-Medrol, Lovenox, Norvasc, Protonix. REVIEW OF SYSTEMS As mentioned in the HPI. Denies any severe dizziness, visual problems, sinus problems. He denies any severe abdominal pain. He has occasional diarrhea. No urinary symptoms. He denies any recent seizures or strokes or skin rashes. FAMILY HISTORY Noncontributory. PHYSICAL EXAMINATION GENERAL: He is alert, increased shortness of breath. VITAL SIGNS: Temperature is 98, pulse 79 to 106, blood pressure 96 to 159 Unit #: [id number] #: [id number] Patient: SOPHY MOULTON over 51 to 100. He has 1550 in and out x2 plus. HEENT: Normocephalic, atraumatic. Pupils are equal, round, and reactive to light. Extraocular muscles are intact. Hearing appears to be normal. Mouth clear. No erythema. No exudate. NECK: Supple. No adenopathy. CARDIAC: Regular rhythm without a rub. No S3 or S4. LUNGS: Bilateral rhonchi and wheezes. ABDOMEN: Bowel sounds positive. Nontender. Soft. No masses felt. No hepato-organomegaly noted. EXTREMITIES: He has no lower extremity swelling. His pulses are intact in upper and lower extremities. JOINTS: No joint pain or joint swelling. SKIN: No rashes. NEUROLOGIC: Appears intact motor and sensory grossly. : Deferred. DIAGNOSTIC STUDIES LABORATORY RESULTS: Sodium 133, potassium 4.1, chloride 99, bicarb 20, BUN of 39, creatinine 2.9, glucose 125, calcium 7.3. ABG showed a pH of 7.175, pCO2 of 55, pO2 of 55. Albumin is 3.3. Lactic acid 3.1. Influenza A and B is negative. Hemoglobin 14.2, white count 11,500 down from 20,800, platelets 155,000. IMAGING STUDIES: Chest x-ray showed left upper lobe infiltrate. ASSESSMENT AND PLAN 1. Acute kidney injury. This is a gentleman with increased BUN and creatinine. Certainly, it could be related to acute tubular necrosis from sepsis, pneumonia, hypotension, versus volume depletion versus other. Certainly, keep him off his Mobic and avoid all nonsteroidals. We will check a bladder scan postvoid residual. Check a renal ultrasound. We will also check urine studies to see if he has any active urinary sediment. Check urine eosinophils. Check random urine sodium. He does have this history of hemoptysis, it could be coming from that pneumonia, but certainly although I do not have urine, I would like to go ahead and order serology studies to rule out pulmonary renal syndrome. I would like to check an ANCA, anti-GBM. We will continue IV fluids, but we will change him over to add some bicarb depending on how he does and depending on what further workup and treatment. We would also like to check a CPK to rule out rhabdomyolysis. 2. Acid-base status. The patient appears to have both respiratory and a metabolic acidosis. We will defer respiratory to Pulmonary. We will start him on half-normal saline with 1.5 amps of bicarb per liter only 75 mL an hour. I do not want to overload him because of his respiratory status. 3. Pneumonia. 4. History of hypertension, certainly avoid ACEs and ARBs on him at this time due to his acute renal insufficiency. Thank you very much. Dictated by..Arnoldo Quispe M.D. ARNOL/ashu TD: 08/10/2016 00:16 Unit #: [id number] #: [id number] Patient: SOPHY MOULTON JOB #: [id number] CONSULTATION REPORT Page 1 of 1 X Nima Quispe MD X CONSULTATION REPORT
--- NOTE | ~2016-08-07 | CO ---
Unit #: [id number] #: [id number] Patient: SOPHY SCHAFER [id number] [facility] [address] [facility]. [place], [place] [address] [id number] I MR#: [id number] NAME: SOPHY SCHAFER ROOM: 468 Age: 56 Sex: M Admission Date: 08/07/2016 : 1960 Attending Physician: Chiquita Massey M.D. Primary Care Physician: Chiquita Massey M.D. Consultation Date: 08/26/2016 CONSULTATION REPORT REASON FOR CONSULT Confusion, mental status changes. PATIENT IDENTIFICATION This is a 56-year-old, right-handed, male evaluated in room 468 at [facility]. SOURCE OF INFORMATION Obtained from the patient, as well as the medical record. Patient is a poor historian. 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 He was also recently diagnosed with likely sleep apnea. He presented to [facility] with chills and high fever and shortness of breath, as well as cough and chest pain on the left side. He had recently been seen by his barista and had a chest x-ray and PFTs done. He eventually came to the ER because he got really short of breath while trying to do some work and, thus, went to [facility]. He was transferred to [facility] for admission due to chills, fever, body aches, cough with blood streaks in the sputum. He was admitted to [facility] for acute hypoxic respiratory failure, left upper lobe pneumonia, hemoptysis had COPD exacerbation, as well as sepsis. He was admitted for treatment of acute kidney injury. Apparently his pulse oximetry on room air was 100% in the ER at [facility], but when he was transferred to [facility], his O2 saturation was 80%. He was placed on 3 liters and went up to 83%; had to be placed on Oxymizer with 12 liters. He actually ended up requiring intubation during this hospital stay and has since been extubated. He has been seen by urology for urinary retention and is status post Chavez catheter placement. He has been seen by nephrology for acute kidney injury and also pulmonology for his respiratory issue and infectious disease consult for antibiotic management for MRSA pneumonia and sepsis. Neurology is asked to evaluate further for ongoing mental status changes. He apparently has been having a xmgsvw-lee-kozknk-type picture of agitation and confusion. He has required a sitter for agitation and refusing treatment. He actually experienced a fall on the . This has been a iguwmb-agy-eymduh-type picture with no neurologic deficits noted. He apparently has not slept in a couple days and went to sleep last evening and slept all night and all morning. He seems calmer today, and Unit #: [id number] #: [id number] Patient: SOPHY SCHAFER his neuro exam, although limited, is nonfocal. He has had no brain imaging studies done on this admission or any prior for comparison that I can find in [employer] or DR. The patient denies current complaint but is a poor historian. He is oriented to person and place, but he states it is July 2015. His speech is clear, and he is grossly nonfocal. PAST MEDICAL HISTORY 1. COPD. 2. Hypertension. 3. GERD. 4. Tobacco abuse. 5. Cholecystectomy. 6. Anxiety. 7. Hypertension. 8. Sleep apnea. ALLERGIES No known drug allergies. HOME MEDICATIONS 1. Norvasc. 2. Prilosec. 3. Zestril. 4. Mobic. NOTE: Hospital medications are as per chart and have been reviewed. REVIEW OF SYSTEMS A 14-point review of systems was attempted with the patient. He is a poor historian. Otherwise obtained from medical record. Please see above. FAMILY HISTORY Family history, per the medical record, is not documented. Thus, I am unable to obtain a detailed family history at this time. SOCIAL HISTORY The patient has a history of tobacco abuse, ongoing, but no known history of alcohol abuse or illicit drug use. He apparently smokes a half pack of tobacco (specifically cigarettes) per day per the medical record. He lives with a hand booked folder and stitcher. He works outside the home. Those details are not clear. PHYSICAL EXAMINATION VITAL SIGNS: Temperature 97.6, pulse 94, respirations 15, blood pressure 100/50, oxygen saturation 97%. Height 5'7", weight 149 pounds. NEUROLOGIC EXAMINATION MENTAL STATUS: The patient is sleeping when I enter the room. He is resting comfortably in no apparent distress. He is arousable to voice and tactile stimulation. His speech is clear. He is cooperative. He answers questions appropriately. He has no aphasia, dysarthria or apraxia. He is oriented to person and place. He believes it to be July 2015. When I ask him about the day of the week, he states, "I don't know." He can name and identify and follow simple commands. CRANIAL NERVE EXAM: He demonstrates full peng of vision. Eyes are conjugate without ptosis or nystagmus. Extraocular movements are intact. Sensation of the face and scalp is intact. Strength of muscles of facial expression is intact. Hearing is intact to voice and conversation. Unit #: [id number] #: [id number] Patient: SOPHY SCHAFER Tongue is midline. Uvula is midline. Palate elevation is normal. Head turning and shoulder shrug are unremarkable. Neck is supple. MOTOR EXAM: He demonstrates normal bulk and tone. Strength is equal, 5/5. SENSORY EXAM: Intact. GAIT: Gait and Romberg are deferred. REFLEXES: Reflexes are 1/4. Toes are equivocal. COORDINATION: Unremarkable. No past-pointing seen. DIAGNOSTIC STUDIES IMAGING: Diagnostic studies have been reviewed. No brain imaging studies available for baseline or comparison. LABS: Sodium 137, potassium 4.5, chloride 100, CO2 29, glucose 115, BUN 34, creatinine 2.8, estimated GFR 100.6, calcium 8.2. White blood cell count is 9.9. Hemoglobin is down today to 9.8 and hematocrit 28.4 compared to a CBC done on the that shows a hemoglobin of 12.3, hematocrit of 36.6. His platelet count from yesterday, 08/25, was 158. There is no CBC or BMP from 08/26. Other labs and diagnostic studies are as per chart and have been reviewed in detail. He had a BNP from August 14 of 229, hemoglobin A1C of 5.4. TSH done on August 08, 2016 of 0.99. His liver functions appear to be mostly intact. He does have a mildly elevated ALT but not greater than twice the upper limits of normal. His CK on the 20 of August was 253. His troponin was 0.04 on August 13. He did not have a urine tox screen done on admission, which was several days ago. Repeat urinalysis not suggestive of urinary tract infection. IMPRESSION 1. Mental status changes. Suspect toxic metabolic encephalopathy versus delirium based on description. He has been better with sleep today, waxing and waning in nature. Nothing to suggest any focal neurologic changes to suggest acute stroke or acute primary neurologic etiology currently given the information I have. 2. MRSA pneumonia. 3. Acute respiratory failure. 4. Anemia with a hemoglobin drop from 12.3 to 9.8 over the last 2 days. Defer to primary team. 5. COPD and ongoing tobacco use. 6. Acute kidney injury. PLAN Will request a CT of the head with no contrast given his ongoing mental status changes and may consider repeat for comparison if no improvement or MRI imaging. However, he is currently nonfocal and there has been nothing so far to suggest stroke or MAINFRAME PROGRAMMER infection or seizure or status. He has had fever early on in his hospital stay, but he was also treated for sepsis and MRSA pneumonia. His fever has cleared. His pneumonia has improved, and he has been afebrile for several days. He does not have any nuchal rigidity, and his presentation of waxing and waning mental status changes is less consistent with MAINFRAME PROGRAMMER infectious etiology. If he does not improve or has any focal changes or worsening, we will consider a lumbar puncture. Will also check a B12 with routine labs. Further recommendations will be made pending workup and further clinical course. Case was discussed with Dr. Ceron. He agrees with the above. Thank you very much. Unit #: [id number] #: [id number] Patient: SOPHY SCHAFER Dictated by... Mariya Ann A.P.R.N. for Roderick Easton/maxx TD: 08/26/2016 16:07 JOB #: [id number] CONSULTATION REPORT Page 1 of 1 X Mariya Ann APRN X CONSULTATION REPORT
--- NOTE | ~2016-08-07 | A ---
[facility] Nutrition Therapy DATE: 08/18/16 Patient: SOPHY SCHAFER Physician: LUIS MIGUEL Address: [address] [facility] Room/Bed: [address], Zip: [place] [address] Admit Date: 08/07/16 Date of : [birth year] Height: 5 7 Weight: 211 96.1 NUTRITIONAL ASSESSMENT: REASON: ADDENDUM TO NUTRITIONAL ASSESSMENT/ ENTERAL RECOMMENDATIONS FROM 08/17 DUE TO ADDITION OF PROPOFOL Labs: Cl- 94 Gluc 235 BUN 37 Ca++ 7.5 Accuchecks 203 Meds: Solu-medrol, protonix, novolog, MgSO4, KCl, furosemide, levemir, lopressor, propofol @ 10.7 mL/hr Estimated Nutrition Needs: 3047-1101 kcals 91-113 grams protein Assessment: Chart reviewed, events noted. Pt is now receiving propofol, which is providing an additional [address] leaving updated recommendationd to adjust EN for additional kcals being received from propofol. Recommendations: 1. While the pt is receiving propfol @ 10.7 mL/hr, decrease Jevity 1.5 to 50 mL/hr + Prostat once daily to provide: 2182 kcals (including kcals from propofol)/ 92 grams protein/ 912 mL free H20 2. When the pt is no longer receiving propofol, increase Jevity 1.5 to 55 mL/hr + Prostat once daily to provide: 2080 kcals/ 99 grams protein/ 1003 mL free H20 3. If the pt is extubated, recommend COMPENSATION AND BENEFITS ANALYST evaluation to determine if the pt can safely tolerate PO intake. Advance diet per COMPENSATION AND BENEFITS ANALYST recommendations + heart healthy diet restriction. Pt is at mild-moderate nutritional risk. RD will continue to follow. Respectfully, IFRAH RAO RD, LD Food and Nutritional Services [facility] cc: client file
--- NOTE | ~2016-08-07 | CR72 ---
[facility] A Service of [facility] & [facility] RADIOLOGY TEXT RESULTS PATIENT: SOPHY SCHAFER LOCATION: [place] [id number] : [birth year] UNIT #: [id number] AGE: [address]: Chiquita Massey MD SEX: M ORDER DR: [id number] [facility] [address] [place], [place] [address] [id number] I MR#: [id number] Acc #: [id number] NAME: SOPHY SCHAFER : 1960 SEX: M STUDY DATE/TIME: 08/22/2016 4:58 UNIT: [facility] ROOM: [facility] STUDY DESCRIPTION: CR Chest Single View Portable Attending Physician: Chiquita Massey M.D. Ordering Physician: Tiffani Schreiber M.D. Primary Care Physician: Chiquita Massey M.D. MEDICAL IMAGING REPORT This report is preliminary unless electronic signature is present EXAM AP portable chest 08/22/2016 HISTORY Respiratory failure. Follow up cardiopulmonary status. TECHNIQUE AP portable chest x-ray. FINDINGS The exam shows no change since yesterday. Reticulonodular infiltrate and/or scarring in the left upper lung. No airspace consolidation or pleural effusion. Heart size normal. PICC in good position. IMPRESSION Stable portable chest radiograph, unchanged since yesterday. Dictated by... Uri Saunders M.D. THIS IS AN ELECTRONICALLY VERIFIED REPORT Uri Saunders M.D. at 08/22/2016 5:58 AM ANA MARIA/janis TD: 08/22/2016 05:14 JOB #: [id number] MEDICAL IMAGING REPORT Page 1 of 1 COPY
--- NOTE | ~2016-08-07 | OR ---
Unit #: [id number] #: [id number] Patient: SOPHY SCHAFER [id number] [address] [place], [place] [address] [id number] I MR#: [id number] NAME: SOPHY SCHAFER ROOM: [facility] Date of Procedure: 08/10/2016 Admission Date: 08/07/2016 Surgeon: Tiffani Schreiber M.D. : 1960 Attending Physician: Chiquita Massey M.D. Primary Care Physician: Chiquita Massey M.D. OPERATIVE REPORT PROCEDURE PERFORMED Bronchoscopy with bronchial wash. ANESTHESIA ICU sedation. INDICATIONS FOR PROCEDURE Plugging, right lower lobe. DESCRIPTION OF PROCEDURE After obtaining informed consent, bronchoscope was passed through the endotracheal tube into the lower lobes. Endotracheal tube was in good position. There was thin, but copious purulent dark brownish secretions bilaterally. The right upper, right middle, right lower, left upper, left lingular, left lower were examined. There was no evidence of any endobronchial lesions. 1% Xylocaine was used on the jeanna. Bronchoscope was passed down to the right lower lobe. Approximately 20 mL of sterile non-bacteriostatic saline was introduced to help wash out any secretions. There were some thick viscid clear secretions in the airways. These were removed. Bronchoscope was then passed into the left upper, middle, and lower lobes. These were also suctioned. The patient had some transient desaturations. Therefore, the bronchoscope was moved and pulled out allowing the patient to time to aspire. There were no acute complications and there were no limitations. Thank you very much. Please page me at [phone] if you have any questions. Dictated by... Roderick Valle/ashu TD: 08/10/2016 22:59 JOB #: [id number] Unit #: [id number] #: [id number] Patient: SOPHY SCHAFER OPERATIVE REPORT Page 1 of 1 X Aman Schreiber MD PROCEDURE OPERATIVE NOTE
--- NOTE | ~2016-08-07 | CO ---
Unit #: [id number] #: [id number] Patient: SOPHY SCHAFER [id number] [address] [address] [id number] I MR#: [id number] NAME: SOPHY SCHAFER ROOM: 468 Age: 56 Sex: M Admission Date: 08/07/2016 : 1960 Attending Physician: Chiquita Massey M.D. Primary Care Physician: Chiquita Massey M.D. Consultation Date: 08/29/2016 CONSULTATION REPORT REASON FOR CONSULTATION Followup. DISCUSSION Mr. Sophy Schafer is a 56-year-old male. The patient interviewed, chart reviewed, and obtained information from nursing staff. The patient was compliant, cooperative during interview. Dressed casually, sitting comfortably in chair, eating his lunch. The patient was able to give coherent answers. The patient was having problem with psychosis and delirium, which is improved. The patient's vital signs; temperature 98.4, pulse 100, respirations 18, blood pressure 110/40. The patient is currently compliant with medication. Has a haloperidol p.r.n. scheduled medication discontinued. REVIEW OF SYSTEMS Complete review of systems is unremarkable. MENTAL STATUS EXAMINATION General appearance; the patient dressed casually in hospital attire. Attention span and concentration, fair. Speech; regular rate, coherent. Oriented in time, place, and person. Mood and affect were labile. Thought process, coherent. Thought content; the patient denied any thoughts of harming self or others. Recent and remote memory, poor. Insight and judgment, poor. DIAGNOSIS Delirium, F05, resolved; psychosis, F2.90. ASSESSMENT AND PLAN 1. Supportive psychotherapy and psychoeducation provided to the patient. 2. Educated about benefits and side effects of medication and course and prognosis of illness. 3. Advised to continue with current treatment on the inpatient unit. If needed, consider further adjustment of medication. We will continue to follow. Dictated by... Roderick Tirado/ashu TD: 08/30/2016 14:07 JOB #: [id number] Unit #: [id number] #: [id number] Patient: SOPHY SCHAFER CONSULTATION REPORT Page 1 of 1 X Brian Martinez MD CONSULTATION REPORT
--- NOTE | ~2016-08-07 | CR72 ---
[facility] A Service of [facility] & [facility] RADIOLOGY TEXT RESULTS PATIENT: SOPHY SCHAFER LOCATION: [address]- : [birth year] UNIT #: [id number] AGE: [address]: Chiquita Massey MD SEX: M ORDER DR: [id number] [facility] [address] [place], [place] [address] [id number] I MR#: [id number] Acc #: [id number] NAME: SOPHY SCHAFER : 1960 SEX: M STUDY DATE/TIME: 08/21/2016 4:16 UNIT: [facility] ROOM: [facility] STUDY DESCRIPTION: CR Chest Single View Portable Attending Physician: Chiquita Massey M.D. Ordering Physician: Tiffani Schreiber M.D. Primary Care Physician: Chiquita Massey M.D. MEDICAL IMAGING REPORT This report is preliminary unless electronic signature is present EXAM Single view chest INDICATION Sepsis. Cough. FINDINGS Single portable AP view of the chest compared to 08/18/2016. Endotracheal tube and enteric tube have been removed in the interval. Heart and mediastinal contours are stable. The left upper lobe/left midlung airspace opacity is unchanged. IMPRESSION 1. Removal of the enteric tube and endotracheal tube. 2. Left upper lobe/left midlung airspace opacity is unchanged. Dictated by... Alvino Mustafa M.D. THIS IS AN ELECTRONICALLY VERIFIED REPORT Alvino Mustafa M.D. at 08/21/2016 8:08 AM LATRICIA/joão TD: 08/21/2016 07:24 JOB #: [id number] MEDICAL IMAGING REPORT Page 1 of 1 COPY
--- NOTE | ~2016-08-07 | XA166 ---
[facility] A Service of [facility] & [facility] RADIOLOGY TEXT RESULTS PATIENT: SOPHY SCHAFER LOCATION: [facility] 468-01 : [birth year] UNIT #: [id number] AGE: [address]: Chiquita Massey MD SEX: M ORDER DR: [id number] [facility] [address] [facility] [place], [place] [address] [id number] I MR#: [id number] Acc #: [id number] NAME: SOPHY SCHAFER : 1960 SEX: M STUDY DATE/TIME: 09/01/2016 11:30 UNIT: [facility] ROOM: [facility] STUDY DESCRIPTION: XA PICC Line Placement WO Port Attending Physician: Chiquita Massey M.D. Ordering Physician: Chiquita Massey M.D. Primary Care Physician: Chiquita Massey M.D. MEDICAL IMAGING REPORT This report is preliminary unless electronic signature is present EXAM Right-sided PICC line placement. HISTORY Need for IV access in a patient with pneumonia. This was initially diagnosed August 07, 2016. PRE-PROCEDURE The procedure was explained to the patient and/or patient software support representative including risks, benefits, potential complications and potential for alternative forms of treatment. Informed consent was obtained, and prior to initiating the procedure a formal timeout procedure was performed. PROCEDURE Using full standard sterile barrier technique, including caps, gowns, gloves, masks, as well as sterile skin preparation and standard sterile draping, the right arm was prepped and draped in the usual fashion, and real-time sterile ultrasound guidance was used to localize an arm vein and to confirm vessel patency. A hard copy ultrasound image was recorded. After local anesthesia with 1% Xylocaine, the vein was punctured using real-time sterile ultrasound guidance, and an 0.018 guidewire was advanced into the superior vena cava, using fluoroscopic guidance. A 5-Canadian dual-lumen PICC was then measured and deployed with the tip positioned in the superior vena cava. The position of the line was documented with a radiographic image. The line was secured in place with an adhesive dressing and an antibiotic patch was applied. Total fluoro time was 0.1 minutes. AK was 1 mGy. IMPRESSION Successful placement of a 5-Canadian dual-lumen PowerPICC via the arm under ultrasound and fluoroscopic guidance. The tip of the PICC is in good STS. [facility] A Service of [facility] RADIOLOGY TEXT RESULTS PATIENT: SOPHY SCHAFER LOCATION: [facility] [address] : [birth year] UNIT #: [id number] AGE: [address]: Chiquita Massey MD SEX: M ORDER DR: position in the superior vena cava. Dictated by... Rossy Pisano M.D. THIS IS AN ELECTRONICALLY VERIFIED REPORT Rossy Pisano M.D. at 09/04/2016 8:19 AM BRYCE/imani TD: 09/02/2016 11:36 JOB #: [id number] MEDICAL IMAGING REPORT Page 1 of 1 COPY
--- NOTE | ~2016-08-07 | CO ---
Unit #: [id number] #: [id number] Patient: SOPHY SCHAFER [id number] [facility] [address] [facility]. [place], [place] [address] [id number] I MR#: [id number] NAME: SOPHY SCHAFER ROOM: [facility] Age: 56 Sex: M Admission Date: 08/07/2016 : 1960 Attending Physician: Chiquita Massey M.D. Primary Care Physician: Chiquita Massey M.D. CONSULTATION REPORT HISTORY OF PRESENT ILLNESS This is a 36-year-old gentleman with history of fevers, chills, cough x3 days. The patient had seen Ms. Mathews in the office with worsening cough. He has received antibiotics. Chest x-ray was clear approximately 2 weeks at that time, went back and saw Dr. Massey. He was found to have an upper lobe infiltrate in the x-ray. He has been having 3 days of significantly increased fever, chills, cough, and some tightness in the chest. No real chest pain. The ER chest x-ray showed a left upper lobe infiltrate. The patient was started on community-acquired pneumonia, organisms, and was sent to the floor. We have been asked to see because of shortness of breath and respiratory failure. The patient also has recent tobacco use and diagnosis of JAMEEL. He is not received his device yet now. REVIEW OF SYSTEMS Consistent with what is in the history of present illness. Otherwise, a 12-point review of systems is negative. PAST MEDICAL HISTORY Significant for COPD as well as hypertension, GERD, obstructive sleep apnea, tobacco use. ALLERGIES The patient has no known medical allergies. HOME MEDICATIONS Include the patient is on nebulizers at home. He takes omeprazole 40 mg q.p.m. He is on Incruse one puff daily. Norvasc, unknown dose daily. Vistaril 50 mg p.r.n. and meloxicam p.r.n. SOCIAL HISTORY The patient is still smoking. No alcohol. No polysubstance use. FAMILY HISTORY Noncontributory. PHYSICAL EXAMINATION VITAL SIGNS: T-current 97.8, pulse 102, respiratory rate 17, blood pressure 95/55, saturating 97% on 6 L nasal cannula. In 1550 and out x2. HEENT: Extraocular movements are intact. Pupils are equal, round, and reactive to light. Head is normocephalic and atraumatic. No accessory muscle use. CHEST: Shows kind of diffuse crackles and rhonchi bilaterally. No significantly increased work of breathing. No significant fremitus. ABDOMEN: Soft, nontender, and nondistended. Unit #: [id number] #: [id number] Patient: SOPHY SCHAFER EXTREMITIES: Shows no significant edema. DIAGNOSTIC STUDIES LABORATORY RESULTS: Blood gas; 7.193, 52, and 56 on 8 L Oxymizer. White count of 11.5, hemoglobin 14.2, platelets of 155. BUN and creatinine 39/2.9 and calcium 7.3. ASSESSMENT/PLAN 1. Acute hypoxic respiratory failure, likely community-acquired pneumonia. Worsening oxygenation. Continue antibiotics, BiPAP as needed. Attempt to get sputum cultures and nebs. 2. Hypoxia likely secondary to pneumonia. There is probable expectoration. 3. Sepsis likely secondary to #2. We are going to continue IV fluids and try to help the patient get resuscitated. Observe him closely in the unit. Thank you very much. Please page me at [phone] if you have any questions. Dictated by... Roderick Valle/ashu TD: 08/09/2016 23:19 JOB #: [id number] CONSULTATION REPORT Page 1 of 1 X Aman Schreiber MD X CONSULTATION REPORT
--- NOTE | ~2016-08-07 | CR7 ---
[facility] A Service of [facility] & [facility] RADIOLOGY TEXT RESULTS PATIENT: SOPHY SCHAFER LOCATION: [address] : [birth year] UNIT #: [id number] AGE: [address]: Chiquita Massey MD SEX: M ORDER DR: [id number] [facility] [address] [place], [place] [address] [id number] I MR#: [id number] Acc #: [id number] NAME: SOPHY SCHAFER : 1960 SEX: M STUDY DATE/TIME: 08/16/2016 19:05 UNIT: [facility] ROOM: [facility] STUDY DESCRIPTION: CR Abdomen Single AP View Attending Physician: Chiquita Massey M.D. Ordering Physician: Froy Khan M.D. Primary Care Physician: Chiquita Massey M.D. MEDICAL IMAGING REPORT This report is preliminary unless electronic signature is present EXAM Abdomen single view dated 08/16/2016 COMPARISON Abdomen single view dated 08/09/2016. HISTORY Distention, bloating and constipation for 2 days. FINDINGS 2 images of the abdomen are given in this single view study. There is nonspecific bowel gas pattern without obvious evidence bowel distention and obstruction or free intraperitoneal air. There is a Dobbhoff tube which is looped at or just below the GE junction with the tip pointing towards the adjacent proximal body of the stomach. The Dobbhoff tube has been repositioned when compared to the prior abdominal x-ray from last week. Rectal tube is in place. Degenerative changes are noted in the thoracolumbar spine. There is some bony irregularity noted in the right ninth and tenth ribs along the cortices. Age indeterminate fractures are in the differential consideration. Correlate clinically. Postoperative surgical janice are noted in the right upper abdomen likely relating to cholecystectomy. Dictated by... Sujey Lomas M.D. THIS IS AN ELECTRONICALLY VERIFIED REPORT Sujey Lomas M.D. at 08/17/2016 1:49 PM [facility] A Service of [facility] & [facility] RADIOLOGY TEXT RESULTS PATIENT: SOPHY SCHAFER LOCATION: CICCU3 CICCU3-21 : 62 UNIT #: [id number] AGE: [address]: Chiquita Massey MD SEX: M ORDER DR: Keeley TD: 08/17/2016 06:48 JOB #: [id number] MEDICAL IMAGING REPORT Page 1 of 1 COPY
--- NOTE | ~2016-08-07 | CR72 ---
[facility] A Service of [facility] & [facility] RADIOLOGY TEXT RESULTS PATIENT: SOPHY SCHAFER LOCATION: [address] : [birth year] UNIT #: [id number] AGE: [address]: Chiquita Massey MD SEX: M ORDER DR: [id number] [facility] [address] [place], [place] [address] [id number] I MR#: [id number] Acc #: [id number] NAME: SOPHY SCHAFER : 1960 SEX: M STUDY DATE/TIME: 08/13/2016 6:01 UNIT: [facility] ROOM: [facility] STUDY DESCRIPTION: CR Chest Single View Portable Attending Physician: Chiquita Massey M.D. Ordering Physician: Tiffani Schreiber M.D. Primary Care Physician: Chiquita Massey M.D. MEDICAL IMAGING REPORT This report is preliminary unless electronic signature is present EXAM AP portable chest 08/13/2016 HISTORY Respiratory failure. Hypoxia. Follow up cardiopulmonary status. TECHNIQUE AP portable chest x-ray. FINDINGS The exam shows no change since yesterday. Endotracheal tube and Dobbhoff feeding tube in good position. Right arm PICC tip in the right atrium. Moderately dense, patchy, heterogeneous infiltrates throughout both lungs, greatest in the left upper chest, unchanged. No visible pleural effusion or pneumothorax. IMPRESSION Stable portable chest radiograph, unchanged since yesterday. Dictated by... Uri Saunders M.D. THIS IS AN ELECTRONICALLY VERIFIED REPORT Uri Saunders M.D. at 08/13/2016 1:32 PM ANA MARIA/joão TD: 08/13/2016 07:27 JOB #: [id number] MEDICAL IMAGING REPORT Page 1 of 1 COPY
--- NOTE | ~2016-08-07 | CO ---
Unit #: [id number] #: [id number] Patient: SOPHY MOULTON [id number] [facility] [address] [place], [place] [address] [id number] I MR#: [id number] NAME: SOPHY MOULTON ROOM: 468 Age: 56 Sex: M Admission Date: 08/07/2016 : 1960 Attending Physician: Chiquita Massey M.D. Primary Care Physician: Chiquita Massey M.D. Consultation Date: 09/01/2016 CONSULTATION REPORT REVISED REPORT REASON FOR CONSULTATION Followup. DISCUSSION Mr. Sophy Moulton is a 56-year-old male seen in room 468, bed 1, on 09/01/2016 at [facility]. Patient was alert, oriented to time, place, and person. Pleasant and cooperative. Was eating his breakfast. Patient reported that he will be going home soon, currently on antibiotic therapy of vancomycin. Admitted with COPD exacerbation, needing intubation. Patient reported mood is better. Currently on haloperidol 2.5 mg q.6 h. p.r.n. for agitation. Denies any hallucinations. Vital signs stable. REVIEW OF SYSTEMS Complete review of systems is unremarkable. MENTAL STATUS EXAMINATION GENERAL APPEARANCE: The patient is casually dressed. Attention and concentration was fair. Speech regular rate, coherent. Oriented to time, place and person. Mood and affect labile. Thought process is coherent. Thought content, patient denied any thoughts of harming self or others or any psychotic symptoms. Recent and remote memory fair. Language intact. Fund of knowledge fair. Insight and judgment is fair to slightly impaired. PSYCHIATRIC DIAGNOSIS 1. Mood disorder, not otherwise specified. F32.9. 2. Delirium. F05. Resolved. 3. Anxiety disorder, not otherwise specified. F40.01 ASSESSMENT AND PLAN 1. Supportive psychotherapy and psychoeducation provided to patient. 2. Educated about benefits and side effects of medication and course and prognosis of illness. 3. Advised patient to continue with the current medication, haloperidol 2.5 mg q.6 h. p.r.n. for psychosis, agitation. If needed, consider further additional medication. 4. Please feel free to call if any questions, . Dictated by... Unit #: [id number] #: [id number] Patient: HANHSOPHY M.D. SZC/keshia TD: 09/01/2016 21:06 JOB #: [id number] CC: Naresh/nick Please Delete CONSULTATION REPORT Page 1 of 1 X Brian Martinez MD CONSULTATION REPORT
--- NOTE | ~2016-08-07 | FU ---
[facility] Nutrition Therapy DATE: 08/13/16 Patient: SOPHY SCHAFER Physician: LUIS MIGUEL Address: [address] Room/Bed: [address], Zip: [place] [address] Admit Date: 08/07/16 Date of : 62 Height: 5 7 Weight: 192 87.5 NUTRITION MONITORING/FOLLOW-UP: Reason: Nutrition follow up Anthropometrics: Ht: 67" Adm wt: 75.5 kg BMI: 26.1 Wt 08/13: 87.5 kg Labs: Gluc 185 BUN 50 Meds: D5%, solu-medrol, protonix, fentanyl I&O's: 2089/0004, last BM 08/07 Skin: No changes/ breakdown noted Edema: None noted Estimated Nutrition Needs: 0475-9448 kcals (25-30 kcals/kg) 91-113 grams protein (1.2-1.5 grams/kg) Assessment: Chart reviewed, events noted. Pt remains intubated in the ICU. Per RN report, the pt is tolerating Jevity 1.5 @ 55 mL/hr + Prostat once daily. Pt has elevated sodium levels, receiving 250 mL free H20 flushes q 4 hrs per MD orders. Per pump history, the pt has received 77% goal volume over the past 24 hrs, and 85% enteral goal volume over the past 48 hrs. Dx: Inadequate oral intake RT clinical condition AEB NPO status, enteral nutrition- ACTIVE Intervention: 1. Enteral nutrition Monitoring, Evaluation and Goals: GOALS BEING MET OR IN PROGRESS 1. Enteral nutrition; continue to provide >80% goal volume 2. Labs; WNL 3. Weight; preserve lean body mass 4. GI; promote regular GI function Recommendations: 1. Continue enteral nutrition with Jevity 1.5 @ 55 mL/hr + 30 mL Prostat once daily as tolerated. [facility] Nutrition Therapy DATE: 08/13/16 Patient: SOPHY SCHAFER Physician: LUIS MIGUEL Address: [address] [facility] Room/Bed: [address], Zip: [place] [address] Admit Date: 08/07/16 Date of : 62 Height: 5 7 Weight: 192 87.5 2. Continue free H20 per MD orders due to elevated sodium. 3. Optimize the pt's bowel regimen. Last BM noted 08/07. 4. If the pt is extubated, recommend CLINICAL EDUCATION CONSULTANT evaluation. Advance diet per CLINICAL EDUCATION CONSULTANT recommendations + HH diet restriction. Status: Pt is at moderate nutritional risk. RD will continue to follow. Respectfully, IFRAH RAO RD, LD Food and Nutritional Services [facility] cc: client file
--- NOTE | ~2016-08-07 | FU ---
[facility] Nutrition Therapy DATE: 08/17/16 Patient: SOPHY SCHAFER Physician: LUIS MIGUEL Address: [address] [facility] Room/Bed: [address], Zip: [place] [address] Admit Date: 08/07/16 Date of : 62 Height: 5 7 Weight: 197 89.5 NUTRITION MONITORING/FOLLOW-UP: Reason: Follow up Anthropometrics: Wt 08/17: 89.5 kg Labs: Cl- 92 Gluc 193 BUN 36 Ca++ 7.5 Alb 1.9 ALT 69 Accuchecks 201 Meds: D5%, versed, fentanyl, solu-medrol, protonix, novolog, MgSO4, KCl, NaCl, furosemide, levemir, lopressor I&O's: 3588/4040, last BM 08/07, abdomen soft with active bowel sounds Skin: Bruising right leg/ BUE Edema: BL hands/ trunk/ BLE 1+ Estimated Nutrition Needs: 5376-0015 kcals (25-30 kcals/kg) 91-113 grams protein (1.2-1.5 grams/kg) Assessment: Chart reviewed, events noted. Pt remains intubated in the ICU and continues to receive Jevity 1.5 @ 55 mL/hr + Prostat once daily (goal rate). RN reports minimal residuals and no tolerance issues. Of note, the pt has not had a BM since 08/07. Per pump history, the pt has received 90% of enteral goal volume over the past 48 hrs. Dx: Inadequate oral intake RT clinical condition AEB NPO status, enteral nutrition- ACTIVE Intervention: 1. Enteral nutrition Monitoring, Evaluation and Goals: 1. Enteral nutrition; continue to provide >80% goal volume- MET 2. Labs; WNL- IN PROGRESS 3. Weight; preserve lean body mass- IN PROGRESS 4. GI; promote regular GI function- NOT MET Recommendations: 1. Continue enteral nutrition with Jevity 1.5 @ 55 mL/hr + Prostat once daily as tolerated. 2. Optimize the pt's bowel regimen. Last BM noted 08/07 (x 10 days). [facility] Nutrition Therapy DATE: 08/17/16 Patient: SOPHY SCHAFER Physician: LUIS MIGUEL Address: [address] Room/Bed: CICCU3-21 [facility], Zip: [place] [address] Admit Date: 08/07/16 Date of : [birth year] Height: 5 7 Weight: 197 89.5 3. If the pt is extubated, recommend BINDERY MACHINE OPERATOR evaluation. Advance diet per BINDERY MACHINE OPERATOR recommendations + heart healthy diet restriction. Status: Pt is at mild-moderate nutritional risk. RD will continue to follow. Respectfully, IFRAH RAO RD, LD Food and Nutritional Services [facility] cc: client file
--- NOTE | ~2016-08-07 | CR72 ---
[facility] A Service of [facility] & [facility] RADIOLOGY TEXT RESULTS PATIENT: SOPHY SCHAFER LOCATION: [facility] 468-01 : [birth year] UNIT #: [id number] AGE: [address]: Chiquita Massey MD SEX: M ORDER DR: [id number] [facility] [address]. [place], [place] [address] [id number] I MR#: [id number] Acc #: [id number] NAME: SOPHY SCHAFER : 1960 SEX: M STUDY DATE/TIME: 08/23/2016 7:41 UNIT: [facility] ROOM: [facility] STUDY DESCRIPTION: CR Chest Single View Portable Attending Physician: Chiquita Massey M.D. Ordering Physician: Aman Schreiber Primary Care Physician: Chiquita Massey M.D. MEDICAL IMAGING REPORT This report is preliminary unless electronic signature is present EXAM Portable chest INDICATIONS Respiratory failure. PROCEDURE Frontal view of the chest COMPARISON 08/22/2016 FINDINGS Heart size is normal. No dense consolidation. Right approach PICC line is stable. No visible pneumothorax. IMPRESSION Stable. Dictated by... Freeman Quintero M.D. THIS IS AN ELECTRONICALLY VERIFIED REPORT Freeman Quintero M.D. at 08/24/2016 9:42 AM Antelmo TD: 08/23/2016 08:43 JOB #: [id number] MEDICAL IMAGING REPORT Page 1 of 1 COPY
--- NOTE | ~2016-08-07 | CT71 ---
[facility] A Service of [facility] RADIOLOGY TEXT RESULTS PATIENT: SOPHY SCHAFER LOCATION: [facility] : 62 UNIT #: [id number] AGE: [address]: Chiquita Massey MD SEX: M ORDER DR: [id number] [place] [address] [facility]. [place], [place] [address] [id number] I MR#: [id number] Acc #: [id number] NAME: SOPHY SCHAFER : 1960 SEX: M STUDY DATE/TIME: 08/26/2016 11:32 UNIT: [facility] ROOM: [facility] STUDY DESCRIPTION: CT Head Wo Contrast Attending Physician: Chiquita Massey M.D. Ordering Physician: Mariya Ann A.P.R.N. Primary Care Physician: Chiquita Massey M.D. MEDICAL IMAGING REPORT This report is preliminary unless electronic signature is present EXAM Head CT, no contrast, 08/26/2016. HISTORY Worsening confusion with lethargy since this morning. PROCEDURE Axial unenhanced head CT. This CT exam was performed with one or more of the following radiation dose reduction techniques: automatic exposure control, adjustment of mA and/or kV according to patient size, and iterative reconstruction. FINDINGS There is some sphenoid sinus mucosal thickening and a few of the lower mastoid air cells are opacified bilaterally. The skull base and calvaria are otherwise unremarkable. There is no intracranial hemorrhage or mass, and there is no hydrocephalus or extraaxial fluid collection. Brain parenchymal density is normal. The extracranial soft tissues are normal. 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 IMPRESSION 1. No acute findings. There is some sphenoid sinus mucosal disease and fluid in a few mastoid air cells. 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 2. The brain appears normal. Dictated by... [facility] A Service [facility] RADIOLOGY TEXT RESULTS PATIENT: SOPHY SCHAFER LOCATION: [facility] : 62 UNIT #: [id number] AGE: [address]: Chiquita Massey MD SEX: M ORDER DR: Vinicio Heath M.D. THIS IS AN ELECTRONICALLY VERIFIED REPORT Vinicio Heath M.D. at 08/27/2016 3:52 PM LEAH/monique TD: 08/26/2016 13:46 JOB #: [id number] MEDICAL IMAGING REPORT Page 1 of 1 COPY
--- NOTE | ~2016-08-07 | FU ---
[facility] Nutrition Therapy DATE: 08/25/16 Patient: SOPHY SCHAFER Physician: LUIS MIGUEL Address: [address] [facility] Room/Bed: [address] [place] [address], Zip: [place] [address] Admit Date: 08/07/16 Date of : 62 Height: 5 7 Weight: 149 68 NUTRITION MONITORING/FOLLOW-UP: Reason: FOLLOW UP Anthropometrics: Wt 08/25: 68 kg Labs: Gluc 115 BUN 34 Ca++ 8.2 Accuchecks 73-99 Meds: Novolog, prednisone, novolog, MgSO4, KCl, NaCl, levemir, furosemide, lopressor I&O's: 360/701, last BM 08/24 Skin: no changes noted Edema: none noted Diet: Pureed diet/ thin liquids Assessment: Chart reviewed, events noted. RD spoke with the pt and sitter at bedside. Pt rarely responded to RD questions; however, he did report that he likes the Magic Cup supplements and does not have a flavor preference. Sitter reports that the pt has been consuming ~50% of meals and supplements. Pt denied having any questions. Accuchecks are WNL. Dx: Predicted suboptimal energy intake RT chewing/ swallowing difficulty AEB need for pureed diet and PNS, PO intake ~50% of meals- ACTIVE Intervention: 1. FOOD CONSULTANT 2. Continue ONS 3. Assist with meals Monitoring, Evaluation and Goals: 1. Oral intake; consume >50% of meals- IN PROGRESS 2. Labs; WNL- MET 3. Maintain weight status- NOT MET Recommendations: 1. Continue diet per FOOD CONSULTANT recommendations. Recommend FOOD CONSULTANT re-eval as appropriate to determine least restrictive diet tolerated by the pt. 2. Continue Magic Cup TID with meals. [facility] Nutrition Therapy DATE: 08/25/16 Patient: SOPHY SCHAFER Physician: LUIS MIGUEL Address: [address] [facility] Room/Bed: [address] [place] [address], Zip: [place] [address] Admit Date: 08/07/16 Date of : 62 Height: 5 7 Weight: 149 68 3. Appreciate staff encouraging and assisting with meals as needed. Status: Pt is at mild-moderate nutritional risk. Respectfully, IFRAH RAO RD, LD Food and Nutritional Services [facility] cc: client file
--- NOTE | ~2016-08-07 | FU ---
[facility] Nutrition Therapy DATE: 08/20/16 Patient: SOPHY SCHAFER Physician: LUIS MIGUEL Address: [address] [facility] Room/Bed: [address], Zip: [place] [address] Admit Date: 08/07/16 Date of : 62 Height: 5 7 Weight: 164 74.5 NUTRITION MONITORING/FOLLOW-UP: Reason: Seen for nutrition follow-up Admitting Dx: 56 y/o male admitted with PNA and sepsis Anthropometrics: Ht: 67", admission wt: 75.5 kg, current wt: 74.5 kg, BMI: 26.1 (overweight) Labs: Glucose 111, POC 125-153, BUN 32, lytes WNL Meds: Novolog (high SSI), Levemir, Miralax, Solu-medrol, PPI, Precedex (titrating down), Furosemide, MgSO4, Nacl, Kcl GI: LBM 08/19 Skin: No nutritionally significant issues Edema: BUE/hands- trace, trunk/thighs- 1+ Assessment: Chart reviewed, events noted. Patient extubated 08/18, now on 3L nasal cannula. He is doing better, DIRECTOR OF MIDWIFERY/STAFF MIDWIFE cleared fur pureed diet with thin liquids which was started yesterday 08/19, Magic cup TID was ordered at that time. RN states the patient ate some breakfast this morning, however he did not like the pureed food. He had refused solids during DIRECTOR OF MIDWIFERY/STAFF MIDWIFE eval, DIRECTOR OF MIDWIFERY/STAFF MIDWIFE to follow. Will continue with ONS due to decreased PO intake, and hopefully his diet texture can be advanced soon. Will continue to follow. Dx: Inadequate oral intake r/t clinical condition AEB NPO, need for EN - RESOLVED. New nutrition Dx: Predicted suboptimal energy intake r/t chewing/swallowing difficulty AEB need for pureed diet and ONS, PO intake < 50% of meals. Intervention: DIRECTOR OF MIDWIFERY/STAFF MIDWIFE to follow, continue ONS, assist with meals Monitoring, Evaluation and Goals: 1. EN to provide > 80% goal volume x 24 hours - NO LONGER RELEVANT 2. Labs WNL - MET 3. Maintain weight status - MET 4. GI function WNL - MET New goals: 1. PO intake > 50% of meals with no c/o chewing/swallowing difficulties. [facility] Nutrition Therapy DATE: 08/20/16 Patient: SOPHY SCHAFER Physician: LUIS MIGUEL Address: [address] [facility] Room/Bed: [address], Zip: [place] [address] Admit Date: 08/07/16 Date of : 62 Height: 5 7 Weight: 164 74.5 2. Continue to maintain weight status. Monitor: Per protocol, criteria to determine if above goals met Recommendations: 1. Contiue pureed diet with thin liquids and Magic cup TID. DIRECTOR OF MIDWIFERY/STAFF MIDWIFE to follow to further evaluate for tolerance of solid texture advancement. 2. Patient requires assistance ordering and feeding meals. Please encourage oral intake. Status: Moderate nutrition risk Respectfully, Trinity Ortiz RD, LD Food and Nutritional Services [facility] cc: client file
--- NOTE | ~2016-08-07 | EKG ---
PATIENT: SOPHY SCHAFER UNIT #: [id number] Ventricular Rate: 96 BPM Atrial Rate: 96 BPM P-R Interval: 118 ms QRS Duration: 88 ms Q-T Interval: 360 ms QTC Calculation(Bezet): 454 ms P Walker: 76 degrees Calculated R Walker: 91 degrees Calculated T Walker: 73 degrees Diagnosis Line: Normal sinus rhythm Diagnosis Line: Rightward axis Diagnosis Line: Borderline ECG Diagnosis Line: When compared with ECG of 19-AUG-2016 05:56, Diagnosis Line: No significant change was found Diagnosis Line: Confirmed by CAREY ARMIJO MD ([id number]) on Diagnosis Line: 08/20/2016 7:26:52 AM INTERPRETING MD: MAICO
--- NOTE | ~2016-08-07 | CR72 ---
[facility] A Service of [facility] RADIOLOGY TEXT RESULTS PATIENT: SOPHY SCHAFER [address]ATION: [address] : 62 UNIT #: [id number] AGE: [address]: Chiquita Massey MD SEX: M ORDER DR: [id number] [facility] [address]. [place], [place] [address] [id number] I MR#: [id number] Acc #: [id number] NAME: SOPHY SCHAFER : 1960 SEX: M STUDY DATE/TIME: 08/15/2016 5:29 UNIT: [facility] ROOM: [facility] STUDY DESCRIPTION: CR Chest Single View Portable Attending Physician: Chiquita Massey M.D. Ordering Physician: Tiffani Schreiber M.D. Primary Care Physician: Chiquita Massey M.D. MEDICAL IMAGING REPORT This report is preliminary unless electronic signature is present EXAM Portable chest 08/15/2016 HISTORY Respiratory failure. Shortness of air for 2 days. COMPARISON STUDIES 08/14/2016 FINDINGS Frontal chest demonstrates tubes and lines in stable position. No pneumothorax. No change in dense, coarse opacities in the left mid and upper lung field. Patchy opacities in the left lower lung field. Heart size and mediastinum are stable. IMPRESSION 1. Tubes and lines appear stable. No pneumothorax. 2. No significant change in course, dense opacities in the left mid and upper lung field and mild patchy opacities in the left lower lung field. Dictated by... Kamlesh Garcia M.D. THIS IS AN ELECTRONICALLY VERIFIED REPORT Kamlesh Garcia M.D. at 08/16/2016 8:12 AM TELLO/romel TD: 08/16/2016 00:15 JOB #: [id number] [facility] A Service of [facility] RADIOLOGY TEXT RESULTS PATIENT: SOPHY SCHAFER LOCATION: [address] : 62 UNIT #: [id number] AGE: [address]: Chiquita Massey MD SEX: M ORDER DR: MEDICAL IMAGING REPORT Page 1 of 1 COPY
--- NOTE | ~2016-08-07 | CR72 ---
[facility] A Service of [facility] & [facility] RADIOLOGY TEXT RESULTS PATIENT: SOPHY SCHAFER LOCATION: [address]21 : [birth year] UNIT #: [id number] AGE: [address]: Chiquita Massey MD SEX: M ORDER DR: [id number] [facility] [address]. [place], [place] [address] [id number] MR#: [id number] Acc #: [id number] NAME: SOPHY SCHAFER : 1960 SEX: M STUDY DATE/TIME: 08/14/2016 5:30 UNIT: [facility] ROOM: [facility] STUDY DESCRIPTION: CR Chest Single View Portable Attending Physician: Chiquita Massey M.D. Ordering Physician: Tiffani Schreiber M.D. Primary Care Physician: Chiquita Massey M.D. MEDICAL IMAGING REPORT This report is preliminary unless electronic signature is present EXAM AP portable chest 08/14/2016 at 05:30 HISTORY Respiratory failure and hypoxia. COMPARISON AP portable chest 08/13/2016 at 06:01. FINDINGS Coarse interstitial and alveolar changes are seen throughout both lungs, greatest in the left mid to upper lung zone, similar to the prior exam. Old right rib fractures. ET tube remains in satisfactory position in the mid to upper thoracic trachea. Dobbhoff tube extends into the stomach, with the tip directed retrograde into the fundus. No definite pleural effusion or pneumothorax is seen. IMPRESSION 1. Coarse interstitial infiltrates within both lungs with more confluent interstitial and alveolar disease in the left upper lobe. Correlate clinically for multifocal pneumonia. The findings are not thought to be significantly changed compared to 08/13/2016, but the left lung findings have significantly improved compared to the more remote chest radiograph of 08/08/2016. 2. The supporting lines and tubes appear stable in position. No visible pneumothorax. 3. The right arm approach PICC extends to the upper right atrial level. Dictated by... Milka Barbosa M.D. THIS IS AN ELECTRONICALLY VERIFIED REPORT [facility] A Service of [facility] RADIOLOGY TEXT RESULTS PATIENT: SOPHY SCHAFER LOCATION: CICCU3 CICCU3-21 : 62 UNIT #: [id number] AGE: [address]: Chiquita Massey MD SEX: M ORDER DR: Milka Barbosa M.D. at 08/17/2016 8:36 AM JACINTO/joão TD: 08/14/2016 09:29 JOB #: [id number] MEDICAL IMAGING REPORT Page 1 of 1 COPY
--- NOTE | ~2016-08-07 | CR72 ---
[facility] A Service of [facility] & [facility] RADIOLOGY TEXT RESULTS PATIENT: SOPHY SCHAFER LOCATION: [address]21 : [birth year] UNIT #: [id number] AGE: [address]: Chiquita Massey MD SEX: M ORDER DR: [id number] [facility] [address] [facility]. [place], [place] [address] [id number] I MR#: [id number] Acc #: [id number] NAME: SOPHY SCHAFER : 1960 SEX: M STUDY DATE/TIME: 08/11/2016 02:57 UNIT: [facility] ROOM: [facility] STUDY DESCRIPTION: CR Chest Single View Portable Attending Physician: Chiquita Massey M.D. Ordering Physician: Aman Schreiber Primary Care Physician: Chiquita Massey M.D. MEDICAL IMAGING REPORT This report is preliminary unless electronic signature is present EXAM Portable chest 08/11 at 02:57 INDICATIONS Fever, hypoxia, pneumonia, status post bronchoscopy yesterday. FINDINGS AP portable chest is compared with 08/10/2016. ET tube mid trachea. Right arm PICC is near the cavoatrial junction. Feeding tube in the stomach. There has been marked interval improvement in aeration of the left hemithorax. Dense consolidation is still noted in the upper lobe with areas of probable underlying cavitation. Minimal infiltrate noted right midlung. No pneumothorax. Dictated by... Igor Mondragon Jr., M.D. THIS IS AN ELECTRONICALLY VERIFIED REPORT Igor Mondragon Jr., M.D. at 08/11/2016 10:37 PM ANN MARIE/chuck TD: 08/11/2016 06:25 JOB #: 1 MEDICAL IMAGING REPORT Page 1 of 1 COPY
--- NOTE | ~2016-08-07 | HP ---
Unit #: [id number] #: [id number] Patient: SOPHY SCHAFER [id number] [facility] [address] [facility]. [place], [place] [address] [id number] I MR#: [id number] NAME: SOPHY SCHAFER ROOM: CIC3 Age: 56 Sex: M Admission Date: 08/07/2016 : 1960 Attending Physician: Chiquita Massey M.D. Primary Care Physician: Chiquita Massey M.D. HISTORY AND PHYSICAL CHIEF COMPLAINT Shortness of breath, cough and left chest pain. HISTORY OF PRESENT ILLNESS Mr. 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 The patient was seen by Dr. Sanches last week and had a chest x-ray done and also had PFT done. The patient was also told that most likely he has sleep apnea. He came home after the chest x-ray and PFT last week and started having chills and high fever. His T-max was 101. He started having left chest pain. The next day he woke up and his pain was better and he was trying to do some work, but he got really short of breath and decided to come to the emergency room. He went to [facility] and was being admitted. The patient has been having chills, cold sweats and high fever. He has been having body aches generalized. He has been having cough with some sputum production and some blood streaks in the sputum. He is having left chest pain which is worse on coughing and on taking deep breaths. He is also complaining of wheezing. Not able to lie down flat, causing shortness of breath. The patient's room air pulse ox in the emergency room was 100%, but when he was transferred to [facility] saturation was 80%. He was placed on 3 liters and went up to 83%. At this time he is on Oxymizer 12 liters. ABG is being done STAT. PAST MEDICAL HISTORY 1. Chronic obstructive pulmonary disease. 2. Hypertension. 3. Gastroesophageal reflux disease. 4. Tobacco abuse. PAST SURGICAL HISTORY History of cholecystectomy. 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 He does have a history of smoking a half pack per day. He has been smoking for a long period of time. No history of alcohol abuse or drug abuse. ALLERGIES No known drug allergies. HOME MEDICATIONS Dosages are unknown. 1. Norvasc daily. Unit #: [id number] #: [id number] Patient: SOPHY SCHAFER 2. Prilosec daily. 3. Zestril daily. 4. Mobic daily. REVIEW OF SYSTEMS As per history of present illness. There is no history of nausea and vomiting. No history of abdominal pain. No history of constipation or diarrhea. He did complain of some dizziness, but no syncopal episode. PHYSICAL EXAMINATION GENERAL: The patient is in respiratory distress. The patient is on Oxymizer 12 liters. VITALS: Blood pressure is 110/57, respiratory rate 18, pulse 79, temperature 97.7. HEENT: Head is normocephalic. NECK: Supple. LUNGS: Decreased air entry bilaterally. Crackles are positive in the left upper lobe. Wheezing is positive throughout. HEART: Tachycardia. ABDOMEN: Soft. EXTREMITIES: Negative edema. NEUROLOGIC: The patient is awake, alert and oriented times three. DIAGNOSTIC STUDIES IMAGING: Chest x-ray shows infiltrate in the superior left upper lobe. New compared to 07/23/2016. LABORATORY: White blood cell count 20.8, hemoglobin 15.1, hematocrit 44.1, platelets 159. Influenza A and B are negative. Troponin less than 0.05. Sodium 132, potassium 3.6, chloride 94, BUN 35, creatinine 3.5. Liver enzymes are stable. Lactic acid 3.1. Occult blood and (1) negative. ASSESSMENT The patient is being admitted to telemetry. May need to be transferred to ICU. We are doing ABG right now. 1. Acute hypoxic respiratory failure. 2. Left upper lobe pneumonia. 3. Hemoptysis. 4. Chronic obstructive pulmonary disease exacerbation. 5. Sepsis. 6. Acute renal failure which could be (2) versus ATN. 7. Hypertension. 8. Tobacco abuse. 9. Gastroesophageal reflux disease. PLAN Admit to telemetry unit at this time. STAT ABG being done. The patient may need to be transferred to the ICU. IV Solu-Medrol 125 mg q.6 h. is being started. Mini-neb treatments have been started. IV Rocephin and IV Zithromax have been started. Sputum for culture is being sent. Blood culture will be done. Dr. Quispe will be consulted for acute renal failure. Dr. Sanches is being consulted. Plan of care has been discussed with the patient. Tobacco cessation counseling done. Dictated by Unit #: [id number] #: [id number] Patient: SOPHY SCHAFER M.D. KN/gz TD: 08/08/2016 13:36 JOB #: [id number] HISTORY AND PHYSICAL Page 1 of 1 X Chiquita Massey MD X HISTORY AND PHYSICAL
--- NOTE | ~2016-08-07 | CO ---
Unit #: [id number] #: [id number] Patient: SOPHY SCHAFER [id number] [facility] [address] [facility]. [place], [place] [address] [id number] I MR#: [id number] NAME: SOPHY SCHAFER ROOM: 468 Age: 56 Sex: M Admission Date: 08/07/2016 : 1960 Attending Physician: Chiquita Massey M.D. Primary Care Physician: Chiquita Massey M.D. Consultation Date: 08/26/2016 CONSULTATION REPORT REASON FOR CONSULTATION Mental status change, psychosis. HISTORY OF PRESENT ILLNESS Mr. Prieto is a 56-year-old white male seen in room 468, bed one, on 08/26/16 at [facility]. The patient is having problems with confusion, agitation. The patient was originally admitted on August 17, 2016. The patient was seen on . The patient was lying comfortably in bed, lying in a right lateral position, receiving oxygen through nasal cannula. The patient answered question in single word. A fat, sad, dysphoric mood. The patient is still having problem with confusion. The patient was poor historian. Chart reviewed. I obtained information from nursing staff. The patient, according to the nursing staff, is having periods of waxing and waning, agitation, mood lability, mood swings, hallucinations. The patient has a sitter for safety. PAST PSYCHIATRIC HISTORY Unremarkable for any history of depression, psychosis or any inpatient or outpatient treatment. PAST MEDICAL HISTORY COPD, hypertension, GERD, tobacco use, cholecystectomy, sleep apnea. FAMILY HISTORY AND SOCIAL HISTORY Poor support system. No history of abuse. No history of any substance abuse known at this time. ALLERGIES No known drug allergies. MEDICATION 1. Norvasc. 2. Prilosec. 3. Zestril. 4. Mobic. REVIEW OF SYSTEMS Complete review of systems is unremarkable except as mentioned above. MENTAL STATUS EXAMINATION GENERAL APPEARANCE: Patient dressed in hospital attire. VITAL SIGNS: 98.7, 110, 18. Oxygen saturation 97%. Blood pressure 104/60. Height 5'7". Weight 149 lb. ATTENTION SPAN AND CONCENTRATION: Poor. Unit #: [id number] #: [id number] Patient: HANH,SOPHY SPEECH: Slow. ORIENTATION: Self. MOOD AND AFFECT: Labile. THOUGHT PROCESS: Circumstantial. THOUGHT CONTENT: Guarded. Paranoid. RECENT AND REMOTE MEMORY: Poor. LANGUAGE: Fair. FUND OF KNOWLEDGE: Impaired. INSIGHT AND JUDGMENT: Impaired. DIAGNOSIS Psychiatric: 1. Delirium, F05. 2. Rule out psychosis, F29.0. SECONDARY DIAGNOSIS Deferred. MEDICAL DIAGNOIS Please refer to H and P. STRESSORS Psychosocial stressors. ASSESSMENT AND PLAN 1. Supportive psychotherapy and psychoeducation provided to patient but patient unable to comprehend much. 2. I advised at this time to continue with the sitter for patient's safety. 3. I advised to discontinue Seroquel and start the patient on scheduled Haldol 2 mg three times a day. I advised to hold medication if patient too sleepy. We will continue to follow. Please feel free to call if any questions, telephone number [phone]. Dictated by... Roderick Tirado/nathaly TD: 08/27/2016 06:39 JOB #: [id number] CONSULTATION REPORT Page 1 of 1 X Brian Martinez MD X CONSULTATION REPORT
--- NOTE | ~2016-08-07 | CT57 ---
[facility] A Service of [facility] & [facility] RADIOLOGY TEXT RESULTS PATIENT: SOPHY SCHAFER LOCATION: [address]-21 : [birth year] UNIT #: [id number] AGE: [address]: Chiquita Massey MD SEX: M ORDER DR: [id number] [facility] [address] [place], [place] [address] [id number] I MR#: [id number] Acc #: [id number] NAME: SOPHY SCHAFER : 1960 SEX: M STUDY DATE/TIME: 08/08/2016 16:06 UNIT: [facility] ROOM: [facility] STUDY DESCRIPTION: CT Chest Wo Cont Attending Physician: Chiquita Massey M.D. Ordering Physician: Tiffani Schreiber M.D. Primary Care Physician: Chiquita Massey M.D. MEDICAL IMAGING REPORT This report is preliminary unless electronic signature is present EXAM CT chest without contrast HISTORY Shortness of air and fever for 4 days. Left side pain. Sepsis. Respiratory failure. TECHNIQUE This CT exam was performed with one or more of the following radiation dose reduction techniques: automatic control, adjustment of mA and/or kV according to patient size, and iterative reconstruction. FINDINGS CT chest without contrast demonstrates extensive dense infiltrate in the left upper lobe corresponding to infiltrate on chest x-ray yesterday. Additional mild infiltrate in the posterior lingula. Findings suggest pneumonia although are nonspecific. Moderate atelectasis in the posterior left lower lobe and minimal atelectasis in the posterior right lower lobe. Trace left pleural effusion. Borderline enlarged superior right paratracheal node measures 9 mm and enlarged inferior right paratracheal node measures 14 mm. AP window node measures 1.1 cm. These could be reactive or inflammatory. Probably incidental sebaceous cyst along the anteromedial and left upper chest measuring 1.6 cm. Several old healed lateral right rib fractures. IMPRESSION 1. Extensive dense infiltrate in the mid and superior left upper lobe corresponds to infiltrate on chest x-ray yesterday. Additional subsegmental infiltrate in the posterior lingula. Although nonspecific this could be due to pneumonia. Short-term followup chest x-ray is recommended after appropriate assessment and treatment. Trace left pleural effusion. 2. Psby-iz-cvimyhsh atelectasis posterior left lower lobe. [facility] A Service of [facility] RADIOLOGY TEXT RESULTS PATIENT: SOPHY SCHAFER LOCATION: [facility] CICCU3-21 : 62 UNIT #: [id number] AGE: [address]: Chiquita Massey MD SEX: M ORDER DR: 3. Mild mediastinal adenopathy could be reactive or inflammatory. Nodes measure up to 1.4 cm along the inferior right paratracheal margin. Dictated by... Jose G Rodarte M.D. THIS IS AN ELECTRONICALLY VERIFIED REPORT Jose G Rodarte M.D. at 08/08/2016 11:27 PM MARIJA/janis TD: 08/08/2016 23:19 JOB #: [id number] MEDICAL IMAGING REPORT Page 1 of 1 COPY
--- NOTE | ~2016-08-07 | EKG ---
PATIENT: SOPHY SCHAFER UNIT #: [id number] Ventricular Rate: 118 BPM Atrial Rate: 118 BPM P-R Interval: 120 ms QRS Duration: 92 ms Q-T Interval: 318 ms QTC Calculation(Bezet): 445 ms P Midway: 76 degrees Calculated R Midway: 91 degrees Calculated T Midway: 63 degrees Diagnosis Line: Sinus tachycardia Diagnosis Line: Rightward axis Diagnosis Line: Borderline ECG Diagnosis Line: When compared with ECG of 14-AUG-2016 13:48, Diagnosis Line: No significant change was found Diagnosis Line: Confirmed by ROSARIO STEIN MD ([id number]) on 08/19/2016 Diagnosis Line: 7:15:50 PM INTERPRETING MD: EMIL BLOCK
--- NOTE | ~2016-08-07 | CR7 ---
[facility] A Service of [facility] & [facility] RADIOLOGY TEXT RESULTS PATIENT: SOPHY SCHAFER LOCATION: [address]21 : [birth year] UNIT #: [id number] AGE: [address]: Chiquita Massey MD SEX: M ORDER DR: [id number] [facility] [address] [place], [place] [address] [id number] I MR#: [id number] #: [id number] NAME: SOPHY SCHAFER : 1960 SEX: M STUDY DATE/TIME: 08/09/2016 10:51 UNIT: [facility] ROOM: [facility] STUDY DESCRIPTION: CR Abdomen Single AP View Attending Physician: Chiquita Massey M.D. Ordering Physician: Chiquita Massey M.D. Primary Care Physician: Chiquita Massey M.D. MEDICAL IMAGING REPORT This report is preliminary unless electronic signature is present EXAM Single view of the abdomen, 08/09/2016 at 1051 hours. COMPARISON Chest x-ray, 08/08/2016. No abdominal x-rays present. HISTORY Dobbhoff tube placement today. FINDINGS Frontal view of the abdomen was obtained. Dobbhoff tube is looped in the proximal body of the stomach with the tip pointing medially in the region of the fundus of the stomach. Nonspecific bowel gas pattern is seen. Postoperative janice are noted in the region of the right upper abdomen, suggestive of cholecystectomy. Dictated by... Sujey Lomas M.D. THIS IS AN ELECTRONICALLY VERIFIED REPORT Sujey Lomas M.D. at 08/10/2016 2:14 PM CPR/monique TD: 08/09/2016 14:12 JOB #: [id number] MEDICAL IMAGING REPORT Page 1 of 1 COPY
--- NOTE | ~2016-08-07 | CO ---
Unit #: [id number] #: [id number] Patient: SOPHY MOULTON [id number] [facility] [address] [facility]. [place], [place] [address] [id number] I MR#: [id number] NAME: SOPHY MOULTON ROOM: 468 Age: 56 Sex: M Admission Date: 08/07/2016 : 1960 Attending Physician: Chiquita Massey M.D. Primary Care Physician: Chiquita Massey M.D. Consultation Date: 08/31/2016 CONSULTATION REPORT REASON FOR CONSULTATION Followup. DISCUSSION Mr. Sophy Moulton is a 56-year-old male, seen in room 468, bed 1 on 08/31/2016 at [facility]. The patient dressed casually, sitting comfortably in chair, eating his breakfast. Pleasant, cooperative, alert, and oriented in time, place, and person. The patient reports that he is feeling better, but still having problem with anxiety, mood lability. The patient's vital signs; temperature 98.1, pulse 77, blood pressure 98/56, oxygen saturation 100%. The patient reports that he is still getting IV antibiotic. The patient denied any thoughts of harming self or others or any psychotic symptom. Reports making progress. The patient's blood glucose 162. The patient is still getting prednisone, haloperidol p.r.n. REVIEW OF SYSTEMS Complete review of systems is unremarkable. MENTAL STATUS EXAMINATION General appearance; the patient dressed casually. Attention span and concentration, fair. Speech; regular rate, coherent. Oriented in time, place, and person. Mood and affect were labile. Thought process, coherent. Thought content; the patient denied any thoughts of harming self or others. Denied any psychotic symptom. Recent and remote memory, fair. Language, intact. Fund of knowledge, fair. Insight and judgment, fair to slightly impaired. DIAGNOSES Psychiatric: Psychosis, not otherwise specified, resolving; mood disorder, not otherwise specified, F32.9. Secondary diagnosis: Deferred. ASSESSMENT AND PLAN 1. Supportive psychotherapy and psychoeducation provided to the patient. 2. Educated about benefits and side effects of medication and course and prognosis of illness. 3. We will continue to follow. Please feel free to call if any questions,telephone #[phone]. Dictated by... Brian Martinez M.D. Unit #: [id number] #: [id number] Patient: SOPHY MOULTON JANNETTE/ashu TD: 08/31/2016 17:25 JOB #: [id number] CONSULTATION REPORT Page 1 of 1 X Brian Martinez MD X CONSULTATION REPORT
--- NOTE | ~2016-08-07 | CT55 ---
[facility] A Service of [facility] & [facility] RADIOLOGY TEXT RESULTS PATIENT: SOPHY SCHAFER LOCATION: [facility] 468-01 : [birth year] UNIT #: [id number] AGE: [address]: Chiquita Massey MD SEX: M ORDER DR: [id number] [facility] [address] [place], [place] [address] [id number] I MR#: [id number] Acc #: [id number] NAME: SOPHY SCHAFER : 1960 SEX: M STUDY DATE/TIME: 08/27/2016 19:03 UNIT: [facility] ROOM: [facility] STUDY DESCRIPTION: CT Chest W Con Attending Physician: Chiquita Massey M.D. Ordering Physician: Baudilio Osorio M.D. Primary Care Physician: Chiquita Massey M.D. MEDICAL IMAGING REPORT This report is preliminary unless electronic signature is present EXAM Chest CT with contrast HISTORY Emphysema chronically. Shortness breath, fever and sepsis over the past 3 weeks. TECHNIQUE/COMPARISON Axial images were obtained through the chest with contrast and compared with 08/08/2016. 100 mL of Isovue was used. This CT exam was performed with one or more of the following radiation dose reduction techniques: automatic exposure control, adjustment of mA and/or kV according to patient size, and iterative reconstruction. FINDINGS Chest images at mediastinal window show no enlarged mediastinal or hilar lymph nodes. There is no evidence of pleural or pericardial fluid. Upper abdominal structures are unremarkable. The lung window imaging shows extensive cavitation in the left upper lobe. There was extensive consolidation seen on the previous scan of 08/08/2016. Findings are consistent with a cavitary pneumonia. In the medial aspect of this extensive area of cavitation, there is a single air fluid level. There is also an air-fluid level toward the inferior aspect in 1 of the cavities near the major fissure. No pleural fluid is seen. No pneumothorax is noted. The right lung is clear with emphysematous changes noted. IMPRESSION The extensive pneumonia in the left upper lobe has cavitated since the previous scan of 08/08/2016. There is a large irregular thick-walled cavity occupying much of the left upper lobe that contains a few small air fluid levels. The right lung is clear with emphysematous changes noted. [facility] A Service of [facility] RADIOLOGY TEXT RESULTS PATIENT: SOPHY SCHAFER LOCATION: C4 468-01 : 62 UNIT #: [id number] AGE: [address]: Chiquita Massey MD SEX: M ORDER DR: No evidence of adenopathy or pleural fluid. Dictated by... Igor Bazzi M.D. THIS IS AN ELECTRONICALLY VERIFIED REPORT Igor Bazzi M.D. at 08/27/2016 10:22 PM RLF/diomedes TD: 08/27/2016 19:22 JOB #: [id number] MEDICAL IMAGING REPORT Page 1 of 1 COPY
--- NOTE | ~2016-08-07 | CR72 ---
[facility] A Service of [facility] & [facility] RADIOLOGY TEXT RESULTS PATIENT: SOPHY SCHAFER LOCATION: [facility] [id number] : [birth year] UNIT #: [id number] AGE: [address]: Chiquita Massey MD SEX: M ORDER DR: [id number] [facility] [address] [place], [place] [address] [id number] I MR#: [id number] #: [id number] NAME: SOPHY SCHAFER : 1960 SEX: M STUDY DATE/TIME: 08/26/2016 09:47 UNIT: [facility] ROOM: [facility] STUDY DESCRIPTION: CR Chest Single View Portable Attending Physician: Chiquita Massey M.D. Ordering Physician: Physician Non-Staff Primary Care Physician: Chiquita Massey M.D. MEDICAL IMAGING REPORT This report is preliminary unless electronic signature is present EXAM Chest portable, 08/26/2016 09:47 hours HISTORY 2-week history of shortness of air, pneumonia for followup. Hypertension and COPD. COMPARISON 08/23/2016 FINDINGS Single portable upright view demonstrates normal heart size. The aorta is normal. The hilar contours are normal. There is suggested cystic lucencies in the left mid and upper lung in the area where patient had fairly confluent airspace density, 08/08/2016. There is underlying emphysematous change however that CT scan does not demonstrate underlying cysts or blebs. Developing cysts, cavitation or even abscess cannot be excluded. The right lung remains clear. IMPRESSION There are band-like densities in the left midlung and left upper lung at site of previous airspace pneumonia with areas of cystic lucencies apparent. Patient had a dense confluent airspace pneumonia in the left upper lobe on CT 08/08/2016 without underlying large cysts or blebs. These lucencies suggests possible development of cysts, bullae or cavitation. Consider correlation with followup chest CT. STAT * RESULT Dictated by... Cristine Levine M.D. THIS IS AN ELECTRONICALLY VERIFIED REPORT [facility] A Service of [facility] & [facility] RADIOLOGY TEXT RESULTS PATIENT: SOPHY SCHAFER LOCATION: [facility] [id number] : [birth year] UNIT #: [id number] AGE: [address]: Chiquita Massey MD SEX: M ORDER DR: Cristine Levine M.D. at 08/26/2016 2:29 PM Markus TD: 08/26/2016 13:53 JOB #: [id number] MEDICAL IMAGING REPORT Page 1 of 1 COPY
--- NOTE | ~2016-08-07 | A ---
[facility] Nutrition Therapy DATE: 08/10/16 Patient: SOPHY SCHAFER Physician: LUIS MIGUEL Address: [address] [facility] Room/Bed: [address], Zip: [place] [address] Admit Date: 08/07/16 Date of : 62 Height: 5 7 Weight: 181 82.5 NUTRITIONAL ASSESSMENT: REASON: Consult RE: tube feeds 56 yo male admitted for sepsis, PNA PMH: COPD, HTN, GERD, tobacco use Anthropometrics: Ht: 5'7" Wt: 75.5 kg (166#) BMI: 26.1 Labs: Gluc 129, BUN 64, Creat 1.7, Ca++ 7.8, Alb 2.0, Phos 5.4, GFR 44.4 Meds: Versed, D5%, Solu-medrol, Protonix, Fentanyl I/O & Bowel function: 4762/1930, last BM 08/07 Skin Integrity: Scar (abd), no edema noted Estimated Nutrition Needs: 2142-7791 kcal (25-30 kcal/kg) 91-113 g protein (1.2-1.5 g/kg) Assessment: Chart reveiwed, events noted. Pt is intubated in ICU. RD was paged yesterday for enteral nutrition recommendations, and provided recs over the phone to RN. Enteral nutrition was on hold this morning d/t bronch. Pt is no longer receiving propofol. Enteral nutrition was restarted with Jevity 1.5 @ 40 mL/hr. No tolerance issues reported by RN. See recommendations below. Dx: Inadequate oral intake RT current clinical condition AEB NPO status, need for enteral nutrition, intubated. Intervention: 1. Enteral nutrition Monitoring, Evaluation and Goals: 1. Enteral nutrition; provide >80% of estimated needs and goal volume x 24 hrs 2. Labs; WNL 3. Weight; prevent unintentional weight loss Recommendations: 1. Increase rate of Jevity 1.5 to goal rate of 55 mL/hr + 30 mL prostat daily. This will provide: 2080 kcal/ 99 g protein/ 1003 mL free H2O. [facility] Nutrition Therapy DATE: 08/10/16 Patient: SOPHY SCHAFER Physician: LUIS MIGUEL Address: [address] Room/Bed: [facility] [facility], Zip: [place] [address] Admit Date: 08/07/16 Date of : 62 Height: 5 7 Weight: 181 82.5 Pt is at a moderate nutritional risk. RD will f/u per protocol. Respectfully, Gabby Flores, Doctor Of Osteopathy Mariya Jackson RD, LD Food and Nutritional Services [facility] [place] [facility] cc: client file
--- NOTE | ~2016-08-07 | CR72 ---
[facility] A Service of [facility] & [facility] RADIOLOGY TEXT RESULTS PATIENT: SOPHY SCHAFER LOCATION: [address] : [birth year] UNIT #: [id number] AGE: [address]: Chiquita Massey MD SEX: M ORDER DR: [id number] [facility] [address] [place], [place] [address] [id number] I MR#: [id number] #: [id number] NAME: SOPHY SCHAFER : 1960 SEX: M STUDY DATE/TIME: 08/10/2016 6:18 UNIT: [facility] ROOM: [facility] STUDY DESCRIPTION: CR Chest Single View Portable Attending Physician: Chiquita Massey M.D. Ordering Physician: Tiffani Schreiber M.D. Primary Care Physician: Chiquita Massey M.D. MEDICAL IMAGING REPORT This report is preliminary unless electronic signature is present EXAM Portable AP view of the chest COMPARISON August 08, 2016 and August 07, 2016. INDICATIONS 56-year-old male with fever, hypoxia and pneumonia for 3 days. Acute respiratory failure. FINDINGS AND IMPRESSION Endotracheal tube is adequately positioned with the tip terminating approximately 4.5 cm above the jeanna. There has been interval placement of a feeding tube with the tip curling within the gastric fundus/body. There is increasing diffuse opacification of the left lung with suggestion of volume loss suggesting some component of mucous plugging and atelectasis. Findings may also reflect worsening of left-sided pneumonia. There is likely persistent left pleural effusion, perhaps increased and now moderate in size. Right lung remains clear. No definite pneumothorax. Multiple right-sided healed rib fractures. Dictated by... Tyrell Wallace M.D. THIS IS AN ELECTRONICALLY VERIFIED REPORT Tyrell Wallace M.D. at 08/12/2016 10:44 AM Mor TD: 08/10/2016 09:20 JOB #: [id number] MEDICAL IMAGING REPORT Page 1 of 1 COPY
[2016-08-07 18:51] LABS: BASOPHIL% 0.1 % (0-2.5); EOSINOPHIL% 0.1 % (0.0-7.0); HEMATOCRIT 44.1 % (38.0-50.0); HEMOGLOBIN 15.1 gm/dL (13.0-16.0); LYMPHOCYTE# 0.5 X10e3 (1.0-3.5); LYMPHOCYTE% 2.5 % (17.0-45.0); MEAN CELL VOLUME 94.2 FL (83-96); MEAN CORPUSCULAR HEMOGLOBIN 32.3 PG (28-34); MEAN CORPUSCULAR HGB CONC 34.3 g/dL (30-36); MEAN PLATELET VOLUME 8.5 FL (6.5-11.5); MONOCYTE# 1.2 X10e3 (0-1.0); MONOCYTE% 5.7 % (3.0-12.0); NEUTROPHIL% 91.6 % (40-75); PLATELET COUNT 159 X10e3 (140-420); RED BLOOD COUNT 4.69 X10e (3.90-5.60); RED CELL DISTRIBUTION WIDTH 13.4 % (11.0-15.5); WHITE BLOOD COUNT 20.8 X10e3 (4.0-10.5)
[2016-08-07 18:55] LABS: DIFF IND YES
[2016-08-07 19:08] LABS: ANISOCYTOSIS SL; PLATELET ESTIMATE NORMAL (NORMAL)
[2016-08-07 19:09] LABS: INFLUENZA A NEG (NEG); INFLUENZA B NEG (NEG)
[2016-08-07 19:11] LABS: ALBUMIN SERUM 3.3 g/dL (3.5-5.0); BILIRUBIN,TOTAL 0.3 mg/dL (0.2-2.0); CALCIUM SERUM 8.2 mg/dL (8.4-10.2); CREATININE SERUM 3.5 mg/dL (0.6-1.4); GLOM FILT RATE Estimated 18.6 mL/min (>60); POTASSIUM 3.6 mmol/L (3.5-5.1); PROTEIN TOTAL SERUM 6.7 g/dL (6.0-8.3)
[2016-08-07 19:13] LABS: POC - CKMB 1.9 ng/mL (0.0-7.9); POC - TROPONIN <0.05 ng/mL (<=0.05)
[2016-08-07 21:11] LABS: POC - TROPONIN <0.05 ng/mL (<=0.05)
[2016-08-08 06:16] LABS: HEMATOCRIT 42.5 % (38.0-50.0); HEMOGLOBIN 14.2 gm/dL (13.0-16.0); MEAN CELL VOLUME 94.7 FL (83-96); MEAN CORPUSCULAR HEMOGLOBIN 31.6 PG (28-34); MEAN CORPUSCULAR HGB CONC 33.4 g/dL (30-36); MEAN PLATELET VOLUME 8.7 FL (6.5-11.5); RED BLOOD COUNT 4.49 X10e (3.90-5.60); RED CELL DISTRIBUTION WIDTH 13.9 % (11.0-15.5); WHITE BLOOD COUNT 11.5 X10e3 (4.0-10.5)
[2016-08-08 06:47] LABS: BUN/CREATININE RATIO 13.44; CALCIUM SERUM 7.3 mg/dL (8.4-10.2); CREATININE SERUM 2.9 mg/dL (0.6-1.4); GLOM FILT RATE Estimated 23.3 mL/min (>60); POTASSIUM 4.1 mmol/L (3.5-5.1)
[2016-08-08 12:33] LABS: ARTERIAL BLD GAS O2 SATURATION 85.8 % (90.0-100.0); ARTERIAL BLOOD GAS CARBOXY HB 0.6 %sat (0.0-9.0); ARTERIAL BLOOD GAS HCO3 20.4 mmol/L; ARTERIAL BLOOD GAS MET HB 0.7 %sat (0.0-2.0)
[2016-08-08 12:34] LABS: ARTERIAL BLOOD GAS PCO2 55.3 mmHg (35.0-45.0); ARTERIAL BLOOD GAS PO2 55.7 mmHg (80.0-100); ARTERIAL BLOOD GAS pH 7.175 (7.350-7.450)
[2016-08-08 12:35] LABS: ARTERIAL BLOOD GAS ALLEN TEST NORMAL; ARTERIAL BLOOD GAS ART SITE LEFT RADIAL; ARTERIAL BLOOD GAS DELIVERY OXIMYZER; ARTERIAL DRAW? YES
[2016-08-08 13:17] LABS: ARTERIAL BLD GAS O2 SATURATION 87.1 % (90.0-100.0); ARTERIAL BLOOD GAS CARBOXY HB 0.5 %sat (0.0-9.0); ARTERIAL BLOOD GAS HCO3 20.3 mmol/L; ARTERIAL BLOOD GAS MET HB 0.7 %sat (0.0-2.0)
[2016-08-08 13:19] LABS: ARTERIAL BLOOD GAS ALLEN TEST NORMAL; ARTERIAL BLOOD GAS ART SITE RIGHT RADIAL; ARTERIAL BLOOD GAS DELIVERY OXYMISER; ARTERIAL BLOOD GAS PCO2 52.9 mmHg (35.0-45.0); ARTERIAL BLOOD GAS PO2 56.5 mmHg (80.0-100); ARTERIAL BLOOD GAS pH 7.193 (7.350-7.450); ARTERIAL DRAW? YES
[2016-08-08 17:05] LABS: ARTERIAL BLD GAS O2 SATURATION 96.5 % (90.0-100.0); ARTERIAL BLOOD GAS CARBOXY HB 0.2 %sat (0.0-9.0); ARTERIAL BLOOD GAS HCO3 22.5 mmol/L; ARTERIAL BLOOD GAS MET HB 0.8 %sat (0.0-2.0)
[2016-08-08 17:07] LABS: ARTERIAL BLOOD GAS ALLEN TEST NORMAL; ARTERIAL BLOOD GAS ART SITE RIGHT RADIAL; ARTERIAL BLOOD GAS DELIVERY BIPAP 14/6; ARTERIAL BLOOD GAS PCO2 69.9 mmHg (35.0-45.0); ARTERIAL BLOOD GAS pH 7.116 (7.350-7.450); ARTERIAL DRAW? YES
[2016-08-08 20:04] LABS: ARTERIAL BLD GAS O2 SATURATION 98.2 % (90.0-100.0); ARTERIAL BLOOD GAS CARBOXY HB 0.1 %sat (0.0-9.0); ARTERIAL BLOOD GAS HCO3 23.4 mmol/L; ARTERIAL BLOOD GAS MET HB 1.1 %sat (0.0-2.0)
[2016-08-08 20:05] LABS: ARTERIAL BLOOD GAS ALLEN TEST NORMAL; ARTERIAL BLOOD GAS ART SITE RIGHT RADIAL; ARTERIAL BLOOD GAS PCO2 83.9 mmHg (35.0-45.0); ARTERIAL BLOOD GAS pH 7.054 (7.350-7.450); ARTERIAL DRAW? YES
[2016-08-08 20:06] LABS: ARTERIAL BLOOD GAS DELIVERY BIPAP AVAPS EPAP 6; ARTERIAL BLOOD GAS VENT MODE AVAPS
[2016-08-08 21:24] LABS: BASOPHIL% 0.1 % (0-2.5); DIFF IND YES; EOSINOPHIL% 0.1 % (0.0-7.0); HEMATOCRIT 43.8 % (38.0-50.0); HEMOGLOBIN 14.6 gm/dL (13.0-16.0); LYMPHOCYTE# 0.2 X10e3 (1.0-3.5); LYMPHOCYTE% 1.6 % (17.0-45.0); MEAN CORPUSCULAR HEMOGLOBIN 31.8 PG (28-34); MEAN CORPUSCULAR HGB CONC 33.5 g/dL (30-36); MEAN PLATELET VOLUME 8.4 FL (6.5-11.5); MONOCYTE# 0.4 X10e3 (0-1.0); NEUTROPHIL# 9.7 X10e3 (1.5-7.1); NEUTROPHIL% 94.2 % (40-75); PLATELET COUNT 165 X10e3 (140-420); RED BLOOD COUNT 4.61 X10e (3.90-5.60); RED CELL DISTRIBUTION WIDTH 13.9 % (11.0-15.5); WHITE BLOOD COUNT 10.3 X10e3 (4.0-10.5)
[2016-08-08 21:39] LABS: ANISOCYTOSIS SL; PLATELET ESTIMATE NORMAL (NORMAL)
[2016-08-08 21:41] LABS: URINE APPEARANCE CLOUDY; URINE BILIRUBIN NEG (NEG); URINE BLOOD 1+ (NEG); URINE COLOR YELLOW; URINE GLUCOSE NEG (NEG); URINE KETONE NEG (NEG); URINE LEUKOCYTE ESTERASE NEG (NEG); URINE NITRATE NEG (NEG); URINE PROTEIN 1+ (NEG); URINE UROBILINOGEN 0.2 MG/DL (NEG)
[2016-08-08 21:42] LABS: URINE BACTERIA AUWI NEG (NEGATIVE); URINE SQUAMOUS EPITHELIAL CELL NONE SEEN /[HPF]; UWBCS1 AUWI 0-2 (0-5)
[2016-08-08 21:43] LABS: CULTURE INDICATED? NO
[2016-08-08 21:53] LABS: BUN/CREATININE RATIO 21.81; CALCIUM SERUM 7.6 mg/dL (8.4-10.2); CREATININE SERUM 2.2 mg/dL (0.6-1.4); GLOM FILT RATE Estimated 32.5 mL/min (>60); MAGNESIUM 1.7 mg/dL (1.6-3.0); POTASSIUM 4.7 mmol/L (3.5-5.1)
[2016-08-08 22:04] LABS: ARTERIAL BLD GAS O2 SATURATION 96.6 % (90.0-100.0); ARTERIAL BLOOD GAS CARBOXY HB 0.4 %sat (0.0-9.0); ARTERIAL BLOOD GAS HCO3 22.1 mmol/L; ARTERIAL BLOOD GAS MET HB 1.1 %sat (0.0-2.0)
[2016-08-08 22:05] LABS: ARTERIAL BLOOD GAS ALLEN TEST NORMAL; ARTERIAL BLOOD GAS ART SITE RIGHT RADIAL; ARTERIAL BLOOD GAS DELIVERY VENT; ARTERIAL BLOOD GAS PCO2 92.1 mmHg (35.0-45.0); ARTERIAL BLOOD GAS VENT MODE A/C; ARTERIAL BLOOD GAS pH 6.988 (7.350-7.450); ARTERIAL DRAW? YES
[2016-08-08 23:43] LABS: ARTERIAL BLD GAS O2 SATURATION 94.8 % (90.0-100.0); ARTERIAL BLOOD GAS CARBOXY HB 0.3 %sat (0.0-9.0); ARTERIAL BLOOD GAS MET HB 0.9 %sat (0.0-2.0); ARTERIAL BLOOD GAS PO2 88.2 mmHg (80.0-100)
[2016-08-08 23:44] LABS: ARTERIAL BLOOD GAS ALLEN TEST NORMAL; ARTERIAL BLOOD GAS ART SITE RIGHT RADIAL; ARTERIAL BLOOD GAS DELIVERY VENT; ARTERIAL BLOOD GAS PCO2 85.3 mmHg (35.0-45.0); ARTERIAL BLOOD GAS VENT MODE A/C; ARTERIAL BLOOD GAS pH 7.058 (7.350-7.450); ARTERIAL DRAW? YES
[2016-08-09 04:05] LABS: ARTERIAL BLD GAS O2 SATURATION 96.2 % (90.0-100.0); ARTERIAL BLOOD GAS CARBOXY HB 0.1 %sat (0.0-9.0); ARTERIAL BLOOD GAS HCO3 23.7 mmol/L; ARTERIAL BLOOD GAS MET HB 0.7 %sat (0.0-2.0); ARTERIAL BLOOD GAS PO2 84.8 mmHg (80.0-100)
[2016-08-09 04:10] LABS: ARTERIAL BLOOD GAS ALLEN TEST NORMAL; ARTERIAL BLOOD GAS ART SITE RIGHT RADIAL; ARTERIAL BLOOD GAS DELIVERY VENT; ARTERIAL BLOOD GAS PCO2 65.7 mmHg (35.0-45.0); ARTERIAL BLOOD GAS VENT MODE A/C; ARTERIAL BLOOD GAS pH 7.166 (7.350-7.450); ARTERIAL DRAW? YES
[2016-08-09 06:02] LABS: BASOPHIL% 0.1 % (0-2.5); EOSINOPHIL% 0.1 % (0.0-7.0); HEMATOCRIT 41.2 % (38.0-50.0); HEMOGLOBIN 13.9 gm/dL (13.0-16.0); LYMPHOCYTE# 0.2 X10e3 (1.0-3.5); LYMPHOCYTE% 3.5 % (17.0-45.0); MEAN CELL VOLUME 94.9 FL (83-96); MEAN CORPUSCULAR HEMOGLOBIN 32.1 PG (28-34); MEAN CORPUSCULAR HGB CONC 33.8 g/dL (30-36); MEAN PLATELET VOLUME 8.5 FL (6.5-11.5); MONOCYTE# 0.1 X10e3 (0-1.0); MONOCYTE% 1.6 % (3.0-12.0); NEUTROPHIL# 5.6 X10e3 (1.5-7.1); NEUTROPHIL% 94.7 % (40-75); PLATELET COUNT 163 X10e3 (140-420); RED BLOOD COUNT 4.35 X10e (3.90-5.60); WHITE BLOOD COUNT 5.9 X10e3 (4.0-10.5)
[2016-08-09 06:05] LABS: DIFF IND NO
[2016-08-09 07:07] LABS: ALBUMIN SERUM 2.3 g/dL (3.5-5.0); BILIRUBIN,TOTAL 0.6 mg/dL (0.2-2.0); BUN/CREATININE RATIO 23.63; CALCIUM SERUM 7.3 mg/dL (8.4-10.2); CREATININE SERUM 2.2 mg/dL (0.6-1.4); GLOM FILT RATE Estimated 32.5 mL/min (>60); MAGNESIUM 1.7 mg/dL (1.6-3.0); PHOSPHOROUS 5.4 mg/dL (2.5-4.6); PROTEIN TOTAL SERUM 5.5 g/dL (6.0-8.3)
[2016-08-09 08:28] LABS: URINE APPEARANCE CLOUDY; URINE BILIRUBIN NEG (NEG); URINE BLOOD 2+ (NEG); URINE COLOR YELLOW; URINE GLUCOSE NEG (NEG); URINE KETONE NEG (NEG); URINE LEUKOCYTE ESTERASE NEG (NEG); URINE NITRATE NEG (NEG); URINE PROTEIN 1+ (NEG); URINE SPECIFIC GRAVITY 1.017 (1.003-1.035)
[2016-08-09 08:31] LABS: URINE BACTERIA AUWI NEG (NEGATIVE); URINE SQUAMOUS EPITHELIAL CELL NONE SEEN /[HPF]
[2016-08-10 04:59] LABS: BASOPHIL% 0.1 % (0-2.5); EOSINOPHIL% 0.1 % (0.0-7.0); HEMATOCRIT 36.2 % (38.0-50.0); LYMPHOCYTE# 0.2 X10e3 (1.0-3.5); LYMPHOCYTE% 3.3 % (17.0-45.0); MEAN CELL VOLUME 95.8 FL (83-96); MEAN CORPUSCULAR HEMOGLOBIN 31.6 PG (28-34); MEAN PLATELET VOLUME 8.4 FL (6.5-11.5); MONOCYTE# 0.3 X10e3 (0-1.0); NEUTROPHIL# 4.7 X10e3 (1.5-7.1); NEUTROPHIL% 91.5 % (40-75); PLATELET COUNT 148 X10e3 (140-420); RED BLOOD COUNT 3.78 X10e (3.90-5.60); RED CELL DISTRIBUTION WIDTH 13.8 % (11.0-15.5); WHITE BLOOD COUNT 5.1 X10e3 (4.0-10.5)
[2016-08-10 05:04] LABS: DIFF IND NO
[2016-08-10 06:05] LABS: BILIRUBIN,TOTAL 0.4 mg/dL (0.2-2.0); BUN/CREATININE RATIO 37.64; CALCIUM SERUM 7.8 mg/dL (8.4-10.2); CREATININE SERUM 1.7 mg/dL (0.6-1.4); GLOM FILT RATE Estimated 44.4 mL/min (>60); MAGNESIUM 2.6 mg/dL (1.6-3.0); POTASSIUM 3.9 mmol/L (3.5-5.1); PROTEIN TOTAL SERUM 5.4 g/dL (6.0-8.3)
[2016-08-10 07:03] LABS: ARTERIAL BLD GAS O2 SATURATION 78.7 % (90.0-100.0); ARTERIAL BLOOD GAS CARBOXY HB 0.3 %sat (0.0-9.0); ARTERIAL BLOOD GAS HCO3 28.2 mmol/L; ARTERIAL BLOOD GAS MET HB 0.7 %sat (0.0-2.0); ARTERIAL BLOOD GAS pH 7.248 (7.350-7.450)
[2016-08-10 07:04] LABS: ARTERIAL BLOOD GAS ART SITE RIGHT RADIAL; ARTERIAL BLOOD GAS DELIVERY VENT; ARTERIAL BLOOD GAS PCO2 64.6 mmHg (35.0-45.0); ARTERIAL BLOOD GAS PO2 43.2 mmHg (80.0-100); ARTERIAL BLOOD GAS VENT MODE AV; ARTERIAL DRAW? YES
[2016-08-11 05:25] LABS: ARTERIAL BLD GAS O2 SATURATION 99.6 % (90.0-100.0); ARTERIAL BLOOD GAS ALLEN TEST NORMAL; ARTERIAL BLOOD GAS ART SITE LEFT RADIAL; ARTERIAL BLOOD GAS DELIVERY VENT; ARTERIAL BLOOD GAS HCO3 33.8 mmol/L; ARTERIAL BLOOD GAS MET HB 0.7 %sat (0.0-2.0); ARTERIAL BLOOD GAS PCO2 69.7 mmHg (35.0-45.0); ARTERIAL BLOOD GAS pH 7.294 (7.350-7.450); ARTERIAL DRAW? YES
[2016-08-11 05:26] LABS: ARTERIAL BLOOD GAS VENT MODE AC
[2016-08-11 06:58] LABS: BUN/CREATININE RATIO 58.18; CALCIUM SERUM 8.1 mg/dL (8.4-10.2); CREATININE SERUM 1.1 mg/dL (0.6-1.4); GLOM FILT RATE Estimated 75.2 mL/min (>60); POTASSIUM 4.1 mmol/L (3.5-5.1)
[2016-08-11 08:03] LABS: ARTERIAL BLD GAS O2 SATURATION 96.2 % (90.0-100.0); ARTERIAL BLOOD GAS ALLEN TEST NORMAL; ARTERIAL BLOOD GAS ART SITE RIGHT RADIAL; ARTERIAL BLOOD GAS CARBOXY HB 0.5 %sat (0.0-9.0); ARTERIAL BLOOD GAS DELIVERY VENT; ARTERIAL BLOOD GAS HCO3 27.3 mmol/L; ARTERIAL BLOOD GAS MET HB 1.1 %sat (0.0-2.0); ARTERIAL BLOOD GAS PCO2 64.8 mmHg (35.0-45.0); ARTERIAL BLOOD GAS PO2 95.7 mmHg (80.0-100); ARTERIAL BLOOD GAS VENT MODE A/C; ARTERIAL BLOOD GAS pH 7.232 (7.350-7.450); ARTERIAL DRAW? YES
[2016-08-11 09:18] LABS: BASOPHIL% 0.1 % (0-2.5); HEMATOCRIT 34.9 % (38.0-50.0); HEMOGLOBIN 11.5 gm/dL (13.0-16.0); LYMPHOCYTE# 0.2 X10e3 (1.0-3.5); LYMPHOCYTE% 2.2 % (17.0-45.0); MEAN CELL VOLUME 96.4 FL (83-96); MEAN CORPUSCULAR HEMOGLOBIN 31.8 PG (28-34); MEAN PLATELET VOLUME 8.5 FL (6.5-11.5); MONOCYTE# 0.1 X10e3 (0-1.0); MONOCYTE% 1.6 % (3.0-12.0); NEUTROPHIL# 8.2 X10e3 (1.5-7.1); NEUTROPHIL% 96.1 % (40-75); PLATELET COUNT 157 X10e3 (140-420); RED BLOOD COUNT 3.62 X10e (3.90-5.60)
[2016-08-11 09:20] LABS: DIFF IND YES; WHITE BLOOD COUNT 8.6 X10e3 (4.0-10.5)
[2016-08-11 10:04] LABS: ALBUMIN SERUM 1.6 g/dL (3.5-5.0); BILIRUBIN,TOTAL 0.3 mg/dL (0.2-2.0); BUN/CREATININE RATIO 50.83; CALCIUM SERUM 8.3 mg/dL (8.4-10.2); CREATININE SERUM 1.2 mg/dL (0.6-1.4); GLOM FILT RATE Estimated 67.7 mL/min (>60); POTASSIUM 4.3 mmol/L (3.5-5.1); PROTEIN TOTAL SERUM 4.5 g/dL (6.0-8.3)
[2016-08-11 12:18] LABS: ANISOCYTOSIS SL; PLATELET ESTIMATE NORMAL (NORMAL); RBC NORMAL YES
[2016-08-12 04:56] LABS: ARTERIAL BLD GAS O2 SATURATION 96.8 % (90.0-100.0); ARTERIAL BLOOD GAS CARBOXY HB 0.3 %sat (0.0-9.0); ARTERIAL BLOOD GAS HCO3 37.8 mmol/L; ARTERIAL BLOOD GAS pH 7.321 (7.350-7.450)
[2016-08-12 04:59] LABS: ARTERIAL BLOOD GAS ALLEN TEST NORMAL; ARTERIAL BLOOD GAS ART SITE RIGHT RADIAL; ARTERIAL BLOOD GAS DELIVERY VENT; ARTERIAL BLOOD GAS PCO2 73.4 mmHg (35.0-45.0); ARTERIAL BLOOD GAS VENT MODE AC; ARTERIAL DRAW? YES
[2016-08-12 05:53] LABS: BASOPHIL% 0.1 % (0-2.5); EOSINOPHIL% 0.1 % (0.0-7.0); HEMATOCRIT 35.2 % (38.0-50.0); HEMOGLOBIN 11.4 gm/dL (13.0-16.0); LYMPHOCYTE# 0.3 X10e3 (1.0-3.5); LYMPHOCYTE% 2.7 % (17.0-45.0); MEAN CELL VOLUME 96.4 FL (83-96); MEAN CORPUSCULAR HEMOGLOBIN 31.2 PG (28-34); MEAN CORPUSCULAR HGB CONC 32.3 g/dL (30-36); MEAN PLATELET VOLUME 8.1 FL (6.5-11.5); MONOCYTE# 0.2 X10e3 (0-1.0); NEUTROPHIL# 10.6 X10e3 (1.5-7.1); NEUTROPHIL% 95.1 % (40-75); PLATELET COUNT 152 X10e3 (140-420); RED BLOOD COUNT 3.65 X10e (3.90-5.60); RED CELL DISTRIBUTION WIDTH 13.7 % (11.0-15.5); WHITE BLOOD COUNT 11.1 X10e3 (4.0-10.5)
[2016-08-12 05:57] LABS: DIFF IND NO
[2016-08-12 06:56] LABS: ALBUMIN SERUM 1.6 g/dL (3.5-5.0); BILIRUBIN,TOTAL 0.3 mg/dL (0.2-2.0); BUN/CREATININE RATIO 58.88; CALCIUM SERUM 8.7 mg/dL (8.4-10.2); CREATININE SERUM 0.9 mg/dL (0.6-1.4); GLOM FILT RATE Estimated 95.8 mL/min (>60); POTASSIUM 4.3 mmol/L (3.5-5.1); PROTEIN TOTAL SERUM 4.6 g/dL (6.0-8.3)
[2016-08-12 12:31] LABS: ARTERIAL BLD GAS O2 SATURATION 90.9 % (90.0-100.0); ARTERIAL BLOOD GAS CARBOXY HB 0.5 %sat (0.0-9.0); ARTERIAL BLOOD GAS HCO3 40.7 mmol/L; ARTERIAL BLOOD GAS MET HB 0.6 %sat (0.0-2.0); ARTERIAL BLOOD GAS pH 7.378 (7.350-7.450)
[2016-08-12 12:32] LABS: ARTERIAL BLOOD GAS ART SITE RIGHT RADIAL; ARTERIAL BLOOD GAS DELIVERY VENT; ARTERIAL BLOOD GAS PCO2 69.1 mmHg (35.0-45.0); ARTERIAL BLOOD GAS VENT MODE AC; ARTERIAL DRAW? YES
[2016-08-12 15:54] LABS: ANA SCREEN Negative (Negative); MYELOPEROXIDASE AB (PNL) <1.0 AI (<1.0); PROTEINASE-3 AB (PNL) <1.0 AI (<1.0)
[2016-08-12 20:33] LABS: URINE APPEARANCE CLEAR; URINE BILIRUBIN NEG (NEG); URINE BLOOD TRACE (NEG); URINE COLOR YELLOW; URINE GLUCOSE NEG (NEG); URINE KETONE NEG (NEG); URINE LEUKOCYTE ESTERASE NEG (NEG); URINE NITRATE NEG (NEG); URINE PH 6.5 (5-8); URINE PROTEIN NEG (NEG); URINE SPECIFIC GRAVITY 1.015 (1.003-1.035); URINE UROBILINOGEN 0.2 MG/DL (NEG)
[2016-08-12 20:35] LABS: U HYALINE CASTS AUWI 0-2 /[LPF]; URINE BACTERIA AUWI NEG (NEGATIVE); URINE SQUAMOUS EPITHELIAL CELL NONE SEEN /[HPF]; UWBCS1 AUWI 0-2 (0-5)
[2016-08-12 20:41] LABS: CULTURE INDICATED? NO
[2016-08-13 00:04] LABS: ARTERIAL BLD GAS O2 SATURATION 94.8 % (90.0-100.0); ARTERIAL BLOOD GAS CARBOXY HB 0.8 %sat (0.0-9.0); ARTERIAL BLOOD GAS HCO3 41.8 mmol/L; ARTERIAL BLOOD GAS MET HB 0.8 %sat (0.0-2.0); ARTERIAL BLOOD GAS pH 7.474 (7.350-7.450)
[2016-08-13 00:06] LABS: ARTERIAL BLOOD GAS ALLEN TEST NORMAL; ARTERIAL BLOOD GAS ART SITE LEFT RADIAL; ARTERIAL BLOOD GAS DELIVERY VENT; ARTERIAL BLOOD GAS PCO2 56.9 mmHg (35.0-45.0); ARTERIAL BLOOD GAS PO2 70.3 mmHg (80.0-100); ARTERIAL BLOOD GAS VENT MODE AC; ARTERIAL DRAW? YES
[2016-08-13 04:16] LABS: ARTERIAL BLD GAS O2 SATURATION 97.2 % (90.0-100.0); ARTERIAL BLOOD GAS CARBOXY HB 0.7 %sat (0.0-9.0); ARTERIAL BLOOD GAS HCO3 44.8 mmol/L; ARTERIAL BLOOD GAS pH 7.399 (7.350-7.450)
[2016-08-13 04:22] LABS: ARTERIAL BLOOD GAS ALLEN TEST NORMAL; ARTERIAL BLOOD GAS ART SITE LEFT RADIAL; ARTERIAL BLOOD GAS DELIVERY VENT; ARTERIAL BLOOD GAS PCO2 72.6 mmHg (35.0-45.0); ARTERIAL BLOOD GAS VENT MODE AC; ARTERIAL DRAW? YES
[2016-08-13 06:03] LABS: DIFF IND YES; EOSINOPHIL% 0.1 % (0.0-7.0); HEMATOCRIT 38.8 % (38.0-50.0); HEMOGLOBIN 12.6 gm/dL (13.0-16.0); LYMPHOCYTE# 0.4 X10e3 (1.0-3.5); LYMPHOCYTE% 2.7 % (17.0-45.0); MEAN CELL VOLUME 97.1 FL (83-96); MEAN CORPUSCULAR HEMOGLOBIN 31.4 PG (28-34); MEAN CORPUSCULAR HGB CONC 32.4 g/dL (30-36); MEAN PLATELET VOLUME 8.9 FL (6.5-11.5); MONOCYTE# 0.1 X10e3 (0-1.0); MONOCYTE% 0.7 % (3.0-12.0); NEUTROPHIL# 14.3 X10e3 (1.5-7.1); NEUTROPHIL% 96.5 % (40-75); PLATELET COUNT 146 X10e3 (140-420); RED CELL DISTRIBUTION WIDTH 13.8 % (11.0-15.5); WHITE BLOOD COUNT 14.8 X10e3 (4.0-10.5)
[2016-08-13 06:22] LABS: BUN/CREATININE RATIO 62.5; CALCIUM SERUM 8.5 mg/dL (8.4-10.2); CREATININE SERUM 0.8 mg/dL (0.6-1.4); GLOM FILT RATE Estimated 100.6 mL/min (>60); POTASSIUM 3.7 mmol/L (3.5-5.1)
[2016-08-13 07:04] LABS: PLATELET ESTIMATE NORMAL (NORMAL)
[2016-08-13 07:05] LABS: ANISOCYTOSIS SL
[2016-08-13 10:27] LABS: ARTERIAL BLD GAS O2 SATURATION 95.1 % (90.0-100.0); ARTERIAL BLOOD GAS CARBOXY HB 0.5 %sat (0.0-9.0); ARTERIAL BLOOD GAS HCO3 44.8 mmol/L; ARTERIAL BLOOD GAS MET HB 0.8 %sat (0.0-2.0); ARTERIAL BLOOD GAS pH 7.414 (7.350-7.450)
[2016-08-13 10:29] LABS: ARTERIAL BLOOD GAS ALLEN TEST NORMAL; ARTERIAL BLOOD GAS ART SITE LEFT RADIAL; ARTERIAL BLOOD GAS DELIVERY VENT; ARTERIAL BLOOD GAS PO2 78.1 mmHg (80.0-100); ARTERIAL BLOOD GAS VENT MODE AC; ARTERIAL DRAW? YES
[2016-08-13 11:35] LABS: CK TOTAL 16 IU/L (36-174)
[2016-08-14 04:46] LABS: ARTERIAL BLD GAS O2 SATURATION 95.5 % (90.0-100.0); ARTERIAL BLOOD GAS CARBOXY HB 0.9 %sat (0.0-9.0); ARTERIAL BLOOD GAS HCO3 44.9 mmol/L; ARTERIAL BLOOD GAS PO2 86.1 mmHg (80.0-100); ARTERIAL BLOOD GAS pH 7.403 (7.350-7.450)
[2016-08-14 04:52] LABS: ARTERIAL BLOOD GAS ALLEN TEST NORMAL; ARTERIAL BLOOD GAS ART SITE LEFT RADIAL; ARTERIAL BLOOD GAS DELIVERY VENT; ARTERIAL BLOOD GAS PCO2 72.1 mmHg (35.0-45.0); ARTERIAL BLOOD GAS VENT MODE AC; ARTERIAL DRAW? YES
[2016-08-14 05:48] LABS: BASOPHIL% 0.1 % (0-2.5); HEMOGLOBIN 12.3 gm/dL (13.0-16.0); LYMPHOCYTE# 0.4 X10e3 (1.0-3.5); LYMPHOCYTE% 2.7 % (17.0-45.0); MEAN CELL VOLUME 97.6 FL (83-96); MEAN CORPUSCULAR HEMOGLOBIN 30.9 PG (28-34); MEAN CORPUSCULAR HGB CONC 31.6 g/dL (30-36); MEAN PLATELET VOLUME 9.2 FL (6.5-11.5); MONOCYTE# 0.1 X10e3 (0-1.0); MONOCYTE% 0.7 % (3.0-12.0); NEUTROPHIL% 96.5 % (40-75); PLATELET COUNT 132 X10e3 (140-420); RED CELL DISTRIBUTION WIDTH 13.8 % (11.0-15.5); WHITE BLOOD COUNT 15.5 X10e3 (4.0-10.5)
[2016-08-14 06:14] LABS: ALBUMIN SERUM 1.7 g/dL (3.5-5.0); BILIRUBIN,TOTAL 0.4 mg/dL (0.2-2.0); BUN/CREATININE RATIO 47.5; CALCIUM SERUM 8.1 mg/dL (8.4-10.2); CREATININE SERUM 0.8 mg/dL (0.6-1.4); GLOM FILT RATE Estimated 100.6 mL/min (>60); PROTEIN TOTAL SERUM 4.5 g/dL (6.0-8.3)
[2016-08-14 08:14] LABS: ARTERIAL BLD GAS O2 SATURATION 92.8 % (90.0-100.0); ARTERIAL BLOOD GAS CARBOXY HB 0.8 %sat (0.0-9.0); ARTERIAL BLOOD GAS pH 7.404 (7.350-7.450)
[2016-08-14 08:16] LABS: ARTERIAL BLOOD GAS ALLEN TEST NORMAL; ARTERIAL BLOOD GAS ART SITE LEFT RADIAL; ARTERIAL BLOOD GAS DELIVERY VENT; ARTERIAL BLOOD GAS PCO2 70.3 mmHg (35.0-45.0); ARTERIAL BLOOD GAS PO2 73.2 mmHg (80.0-100); ARTERIAL BLOOD GAS VENT MODE AC; ARTERIAL DRAW? YES
[2016-08-14 12:01] LABS: DIFF IND YES
[2016-08-14 12:03] LABS: ANISOCYTOSIS SL; PLATELET ESTIMATE NORMAL (NORMAL); RBC NORMAL YES
[2016-08-15 05:47] LABS: BASOPHIL% 0.1 % (0-2.5); EOSINOPHIL% 0.1 % (0.0-7.0); HEMOGLOBIN 11.7 gm/dL (13.0-16.0); LYMPHOCYTE# 0.4 X10e3 (1.0-3.5); LYMPHOCYTE% 3.2 % (17.0-45.0); MEAN CELL VOLUME 95.8 FL (83-96); MEAN CORPUSCULAR HEMOGLOBIN 31.1 PG (28-34); MEAN CORPUSCULAR HGB CONC 32.4 g/dL (30-36); MEAN PLATELET VOLUME 9.3 FL (6.5-11.5); MONOCYTE% 0.3 % (3.0-12.0); NEUTROPHIL# 12.5 X10e3 (1.5-7.1); NEUTROPHIL% 96.3 % (40-75); PLATELET COUNT 129 X10e3 (140-420); RED BLOOD COUNT 3.76 X10e (3.90-5.60); RED CELL DISTRIBUTION WIDTH 13.3 % (11.0-15.5)
[2016-08-15 05:57] LABS: DIFF IND NO
[2016-08-15 07:04] LABS: ALBUMIN SERUM 1.7 g/dL (3.5-5.0); BILIRUBIN,TOTAL 0.3 mg/dL (0.2-2.0); BUN/CREATININE RATIO 42.85; CALCIUM SERUM 7.9 mg/dL (8.4-10.2); CREATININE SERUM 0.7 mg/dL (0.6-1.4); GLOM FILT RATE Estimated 106.3 mL/min (>60); POTASSIUM 4.1 mmol/L (3.5-5.1); PROTEIN TOTAL SERUM 4.7 g/dL (6.0-8.3)
[2016-08-16 03:55] LABS: ARTERIAL BLD GAS O2 SATURATION 94.9 % (90.0-100.0); ARTERIAL BLOOD GAS CARBOXY HB 0.7 %sat (0.0-9.0); ARTERIAL BLOOD GAS HCO3 44.6 mmol/L; ARTERIAL BLOOD GAS MET HB 1.1 %sat (0.0-2.0); ARTERIAL BLOOD GAS PO2 86.3 mmHg (80.0-100); ARTERIAL BLOOD GAS pH 7.373 (7.350-7.450)
[2016-08-16 04:06] LABS: ARTERIAL BLOOD GAS ALLEN TEST NORMAL; ARTERIAL BLOOD GAS ART SITE LEFT RADIAL; ARTERIAL BLOOD GAS DELIVERY VENT; ARTERIAL BLOOD GAS PCO2 76.6 mmHg (35.0-45.0); ARTERIAL BLOOD GAS VENT MODE AC; ARTERIAL DRAW? YES
[2016-08-16 05:37] LABS: BASOPHIL# 0.1 X10e3 (0-0.3); BASOPHIL% 0.3 % (0-2.5); HEMATOCRIT 37.6 % (38.0-50.0); HEMOGLOBIN 12.1 gm/dL (13.0-16.0); LYMPHOCYTE# 0.4 X10e3 (1.0-3.5); LYMPHOCYTE% 2.2 % (17.0-45.0); MEAN CELL VOLUME 95.3 FL (83-96); MEAN CORPUSCULAR HEMOGLOBIN 30.7 PG (28-34); MEAN CORPUSCULAR HGB CONC 32.2 g/dL (30-36); MEAN PLATELET VOLUME 9.3 FL (6.5-11.5); MONOCYTE# 0.1 X10e3 (0-1.0); MONOCYTE% 0.5 % (3.0-12.0); NEUTROPHIL# 17.3 X10e3 (1.5-7.1); PLATELET COUNT 162 X10e3 (140-420); RED BLOOD COUNT 3.95 X10e (3.90-5.60); RED CELL DISTRIBUTION WIDTH 13.2 % (11.0-15.5); WHITE BLOOD COUNT 17.9 X10e3 (4.0-10.5)
[2016-08-16 05:40] LABS: DIFF IND NO
[2016-08-16 06:34] LABS: ALBUMIN SERUM 1.8 g/dL (3.5-5.0); BILIRUBIN,TOTAL 0.5 mg/dL (0.2-2.0); BUN/CREATININE RATIO 41.42; CALCIUM SERUM 7.9 mg/dL (8.4-10.2); CREATININE SERUM 0.7 mg/dL (0.6-1.4); GLOM FILT RATE Estimated 106.3 mL/min (>60); MAGNESIUM 1.8 mg/dL (1.6-3.0); PHOSPHOROUS 3.9 mg/dL (2.5-4.6); POTASSIUM 4.2 mmol/L (3.5-5.1); PROTEIN TOTAL SERUM 4.2 g/dL (6.0-8.3)
[2016-08-17 05:15] LABS: HEMATOCRIT 35.2 % (38.0-50.0); HEMOGLOBIN 11.5 gm/dL (13.0-16.0); MEAN CELL VOLUME 94.7 FL (83-96); MEAN CORPUSCULAR HEMOGLOBIN 31.1 PG (28-34); MEAN CORPUSCULAR HGB CONC 32.8 g/dL (30-36); MEAN PLATELET VOLUME 8.5 FL (6.5-11.5); RED BLOOD COUNT 3.71 X10e (3.90-5.60); RED CELL DISTRIBUTION WIDTH 13.6 % (11.0-15.5); WHITE BLOOD COUNT 13.4 X10e3 (4.0-10.5)
[2016-08-17 06:16] LABS: ARTERIAL BLD GAS O2 SATURATION 92.3 % (90.0-100.0); ARTERIAL BLOOD GAS CARBOXY HB 0.9 %sat (0.0-9.0); ARTERIAL BLOOD GAS HCO3 45.4 mmol/L; ARTERIAL BLOOD GAS MET HB 0.9 %sat (0.0-2.0); ARTERIAL BLOOD GAS pH 7.409 (7.350-7.450)
[2016-08-17 06:17] LABS: ARTERIAL BLOOD GAS ALLEN TEST NORMAL; ARTERIAL BLOOD GAS ART SITE LEFT RADIAL; ARTERIAL BLOOD GAS PCO2 71.9 mmHg (35.0-45.0); ARTERIAL BLOOD GAS PO2 68.5 mmHg (80.0-100); ARTERIAL DRAW? YES
[2016-08-17 06:18] LABS: ARTERIAL BLOOD GAS DELIVERY VENT; ARTERIAL BLOOD GAS VENT MODE AC
[2016-08-17 06:57] LABS: ALBUMIN SERUM 1.9 g/dL (3.5-5.0); BILIRUBIN,TOTAL 0.5 mg/dL (0.2-2.0); BUN/CREATININE RATIO 51.42; CALCIUM SERUM 7.5 mg/dL (8.4-10.2); CREATININE SERUM 0.7 mg/dL (0.6-1.4); GLOM FILT RATE Estimated 106.3 mL/min (>60); MAGNESIUM 1.9 mg/dL (1.6-3.0); PHOSPHOROUS 4.1 mg/dL (2.5-4.6); POTASSIUM 3.7 mmol/L (3.5-5.1); PROTEIN TOTAL SERUM 4.2 g/dL (6.0-8.3)
[2016-08-18 04:11] LABS: ARTERIAL BLD GAS O2 SATURATION 93.2 % (90.0-100.0); ARTERIAL BLOOD GAS CARBOXY HB 0.9 %sat (0.0-9.0); ARTERIAL BLOOD GAS HCO3 42.6 mmol/L; ARTERIAL BLOOD GAS MET HB 1.3 %sat (0.0-2.0); ARTERIAL BLOOD GAS pH 7.485 (7.350-7.450)
[2016-08-18 04:14] LABS: ARTERIAL BLOOD GAS ALLEN TEST NORMAL; ARTERIAL BLOOD GAS ART SITE LEFT RADIAL; ARTERIAL BLOOD GAS DELIVERY VENT; ARTERIAL BLOOD GAS PCO2 56.6 mmHg (35.0-45.0); ARTERIAL BLOOD GAS PO2 69.7 mmHg (80.0-100); ARTERIAL BLOOD GAS VENT MODE AC; ARTERIAL DRAW? YES
[2016-08-18 05:40] LABS: BASOPHIL% 0.1 % (0-2.5); HEMATOCRIT 35.9 % (38.0-50.0); HEMOGLOBIN 11.9 gm/dL (13.0-16.0); LYMPHOCYTE# 0.2 X10e3 (1.0-3.5); LYMPHOCYTE% 2.3 % (17.0-45.0); MEAN CORPUSCULAR HEMOGLOBIN 31.2 PG (28-34); MEAN CORPUSCULAR HGB CONC 33.1 g/dL (30-36); MEAN PLATELET VOLUME 8.5 FL (6.5-11.5); MONOCYTE# 0.3 X10e3 (0-1.0); MONOCYTE% 2.8 % (3.0-12.0); NEUTROPHIL# 9.8 X10e3 (1.5-7.1); NEUTROPHIL% 94.8 % (40-75); PLATELET COUNT 160 X10e3 (140-420); RED BLOOD COUNT 3.82 X10e (3.90-5.60); RED CELL DISTRIBUTION WIDTH 13.2 % (11.0-15.5); WHITE BLOOD COUNT 10.3 X10e3 (4.0-10.5)
[2016-08-18 05:54] LABS: DIFF IND NO
[2016-08-18 07:01] LABS: BUN/CREATININE RATIO 46.25; CALCIUM SERUM 7.5 mg/dL (8.4-10.2); CREATININE SERUM 0.8 mg/dL (0.6-1.4); GLOM FILT RATE Estimated 100.6 mL/min (>60); POTASSIUM 3.5 mmol/L (3.5-5.1)
[2016-08-18 12:02] LABS: ARTERIAL BLD GAS O2 SATURATION 92.1 % (90.0-100.0); ARTERIAL BLOOD GAS CARBOXY HB 0.6 %sat (0.0-9.0); ARTERIAL BLOOD GAS HCO3 42.8 mmol/L; ARTERIAL BLOOD GAS MET HB 0.8 %sat (0.0-2.0); ARTERIAL BLOOD GAS pH 7.499 (7.350-7.450)
[2016-08-18 12:03] LABS: ARTERIAL BLOOD GAS ALLEN TEST NORMAL; ARTERIAL BLOOD GAS ART SITE LEFT RADIAL; ARTERIAL BLOOD GAS DELIVERY VENT; ARTERIAL BLOOD GAS PO2 65.2 mmHg (80.0-100); ARTERIAL BLOOD GAS VENT MODE SIMV; ARTERIAL DRAW? YES
[2016-08-19 06:08] LABS: BASOPHIL% 0.1 % (0-2.5); HEMATOCRIT 40.2 % (38.0-50.0); HEMOGLOBIN 13.1 gm/dL (13.0-16.0); LYMPHOCYTE# 0.3 X10e3 (1.0-3.5); LYMPHOCYTE% 2.2 % (17.0-45.0); MEAN CELL VOLUME 94.8 FL (83-96); MEAN CORPUSCULAR HGB CONC 32.7 g/dL (30-36); MEAN PLATELET VOLUME 8.9 FL (6.5-11.5); MONOCYTE# 0.3 X10e3 (0-1.0); MONOCYTE% 2.3 % (3.0-12.0); NEUTROPHIL# 14.2 X10e3 (1.5-7.1); NEUTROPHIL% 95.4 % (40-75); PLATELET COUNT 214 X10e3 (140-420); RED BLOOD COUNT 4.24 X10e (3.90-5.60); RED CELL DISTRIBUTION WIDTH 13.1 % (11.0-15.5); WHITE BLOOD COUNT 14.9 X10e3 (4.0-10.5)
[2016-08-19 06:16] LABS: DIFF IND YES
[2016-08-19 06:37] LABS: ALBUMIN SERUM 2.4 g/dL (3.5-5.0); BILIRUBIN,TOTAL 0.8 mg/dL (0.2-2.0); BUN/CREATININE RATIO 47.14; CALCIUM SERUM 8.1 mg/dL (8.4-10.2); CREATININE SERUM 0.7 mg/dL (0.6-1.4); GLOM FILT RATE Estimated 106.3 mL/min (>60); MAGNESIUM 1.8 mg/dL (1.6-3.0); POTASSIUM 3.4 mmol/L (3.5-5.1); PROTEIN TOTAL SERUM 5.3 g/dL (6.0-8.3)
[2016-08-19 07:00] LABS: ANISOCYTOSIS SL; PLATELET ESTIMATE NORMAL (NORMAL)
[2016-08-19 15:27] LABS: CALCIUM SERUM 8.2 mg/dL (8.4-10.2); CREATININE SERUM 0.8 mg/dL (0.6-1.4); GLOM FILT RATE Estimated 100.6 mL/min (>60); POTASSIUM 3.3 mmol/L (3.5-5.1)
[2016-08-20 06:32] LABS: BASOPHIL% 0.1 % (0-2.5); HEMATOCRIT 37.9 % (38.0-50.0); HEMOGLOBIN 12.5 gm/dL (13.0-16.0); LYMPHOCYTE# 0.3 X10e3 (1.0-3.5); LYMPHOCYTE% 2.2 % (17.0-45.0); MEAN CELL VOLUME 93.7 FL (83-96); MEAN CORPUSCULAR HEMOGLOBIN 30.8 PG (28-34); MEAN CORPUSCULAR HGB CONC 32.9 g/dL (30-36); MEAN PLATELET VOLUME 8.2 FL (6.5-11.5); MONOCYTE# 0.5 X10e3 (0-1.0); MONOCYTE% 3.5 % (3.0-12.0); NEUTROPHIL# 14.5 X10e3 (1.5-7.1); NEUTROPHIL% 94.2 % (40-75); PLATELET COUNT 221 X10e3 (140-420); RED BLOOD COUNT 4.05 X10e (3.90-5.60); WHITE BLOOD COUNT 15.4 X10e3 (4.0-10.5)
[2016-08-20 06:35] LABS: DIFF IND NO
[2016-08-20 07:06] LABS: ALBUMIN SERUM 2.4 g/dL (3.5-5.0); BILIRUBIN,TOTAL 1.4 mg/dL (0.2-2.0); BUN/CREATININE RATIO 45.71; CALCIUM SERUM 8.2 mg/dL (8.4-10.2); CREATININE SERUM 0.7 mg/dL (0.6-1.4); GLOM FILT RATE Estimated 106.3 mL/min (>60); MAGNESIUM 2.1 mg/dL (1.6-3.0); POTASSIUM 3.5 mmol/L (3.5-5.1); PROTEIN TOTAL SERUM 4.8 g/dL (6.0-8.3)
[2016-08-21 05:28] LABS: BASOPHIL% 0.3 % (0-2.5); HEMATOCRIT 36.2 % (38.0-50.0); HEMOGLOBIN 12.3 gm/dL (13.0-16.0); LYMPHOCYTE# 0.4 X10e3 (1.0-3.5); LYMPHOCYTE% 4.1 % (17.0-45.0); MEAN CORPUSCULAR HEMOGLOBIN 31.9 PG (28-34); MEAN CORPUSCULAR HGB CONC 33.9 g/dL (30-36); MEAN PLATELET VOLUME 8.2 FL (6.5-11.5); MONOCYTE# 0.6 X10e3 (0-1.0); MONOCYTE% 5.2 % (3.0-12.0); NEUTROPHIL# 9.5 X10e3 (1.5-7.1); NEUTROPHIL% 90.4 % (40-75); PLATELET COUNT 249 X10e3 (140-420); RED BLOOD COUNT 3.85 X10e (3.90-5.60); WHITE BLOOD COUNT 10.6 X10e3 (4.0-10.5)
[2016-08-21 05:47] LABS: DIFF IND NO
[2016-08-21 08:14] LABS: BUN/CREATININE RATIO 51.42; CALCIUM SERUM 8.2 mg/dL (8.4-10.2); CREATININE SERUM 0.7 mg/dL (0.6-1.4); GLOM FILT RATE Estimated 106.3 mL/min (>60); POTASSIUM 3.3 mmol/L (3.5-5.1)
[2016-08-22 05:26] LABS: BASOPHIL% 0.1 % (0-2.5); HEMATOCRIT 37.1 % (38.0-50.0); HEMOGLOBIN 12.3 gm/dL (13.0-16.0); LYMPHOCYTE# 0.7 X10e3 (1.0-3.5); LYMPHOCYTE% 4.4 % (17.0-45.0); MEAN CELL VOLUME 93.7 FL (83-96); MEAN CORPUSCULAR HGB CONC 33.1 g/dL (30-36); MEAN PLATELET VOLUME 8.6 FL (6.5-11.5); MONOCYTE# 0.8 X10e3 (0-1.0); MONOCYTE% 5.3 % (3.0-12.0); NEUTROPHIL% 90.2 % (40-75); PLATELET COUNT 292 X10e3 (140-420); RED BLOOD COUNT 3.95 X10e (3.90-5.60); RED CELL DISTRIBUTION WIDTH 13.4 % (11.0-15.5); WHITE BLOOD COUNT 15.5 X10e3 (4.0-10.5)
[2016-08-22 05:30] LABS: DIFF IND NO
[2016-08-22 05:56] LABS: BUN/CREATININE RATIO 43.33; CALCIUM SERUM 8.3 mg/dL (8.4-10.2); CREATININE SERUM 0.9 mg/dL (0.6-1.4); GLOM FILT RATE Estimated 95.8 mL/min (>60); POTASSIUM 3.5 mmol/L (3.5-5.1)
[2016-08-23 02:23] LABS: BASOPHIL% 0.2 % (0-2.5); DIFF IND NO; EOSINOPHIL% 0.1 % (0.0-7.0); HEMATOCRIT 36.6 % (38.0-50.0); HEMOGLOBIN 12.3 gm/dL (13.0-16.0); LYMPHOCYTE# 1.2 X10e3 (1.0-3.5); LYMPHOCYTE% 8.9 % (17.0-45.0); MEAN CELL VOLUME 94.1 FL (83-96); MEAN CORPUSCULAR HEMOGLOBIN 31.8 PG (28-34); MEAN CORPUSCULAR HGB CONC 33.8 g/dL (30-36); MEAN PLATELET VOLUME 8.2 FL (6.5-11.5); MONOCYTE# 0.8 X10e3 (0-1.0); NEUTROPHIL# 11.3 X10e3 (1.5-7.1); NEUTROPHIL% 84.8 % (40-75); PLATELET COUNT 231 X10e3 (140-420); RED BLOOD COUNT 3.89 X10e (3.90-5.60); RED CELL DISTRIBUTION WIDTH 13.3 % (11.0-15.5); WHITE BLOOD COUNT 13.3 X10e3 (4.0-10.5)
[2016-08-23 03:00] LABS: BUN/CREATININE RATIO 53.33; CALCIUM SERUM 8.1 mg/dL (8.4-10.2); CREATININE SERUM 0.9 mg/dL (0.6-1.4); GLOM FILT RATE Estimated 95.8 mL/min (>60); MAGNESIUM 2.1 mg/dL (1.6-3.0); PHOSPHOROUS 4.2 mg/dL (2.5-4.6); POTASSIUM 3.2 mmol/L (3.5-5.1)
[2016-08-25 03:36] LABS: HEMATOCRIT 28.4 % (38.0-50.0); HEMOGLOBIN 9.8 gm/dL (13.0-16.0); LYMPHOCYTE# 0.3 X10e3 (1.0-3.5); LYMPHOCYTE% 2.8 % (17.0-45.0); MEAN CELL VOLUME 91.2 FL (83-96); MEAN CORPUSCULAR HEMOGLOBIN 31.3 PG (28-34); MEAN CORPUSCULAR HGB CONC 34.4 g/dL (30-36); MEAN PLATELET VOLUME 8.4 FL (6.5-11.5); MONOCYTE# 0.3 X10e3 (0-1.0); MONOCYTE% 2.8 % (3.0-12.0); NEUTROPHIL# 9.4 X10e3 (1.5-7.1); NEUTROPHIL% 94.4 % (40-75); PLATELET COUNT 158 X10e3 (140-420); RED BLOOD COUNT 3.11 X10e (3.90-5.60); RED CELL DISTRIBUTION WIDTH 12.8 % (11.0-15.5); WHITE BLOOD COUNT 9.9 X10e3 (4.0-10.5)
[2016-08-25 03:37] LABS: DIFF IND NO
[2016-08-25 04:02] LABS: BUN/CREATININE RATIO 42.5; CALCIUM SERUM 8.2 mg/dL (8.4-10.2); CREATININE SERUM 0.8 mg/dL (0.6-1.4); GLOM FILT RATE Estimated 100.6 mL/min (>60); POTASSIUM 4.5 mmol/L (3.5-5.1)
[2016-08-26 06:24] LABS: MAGNESIUM 1.9 mg/dL (1.6-3.0); POTASSIUM 3.7 mmol/L (3.5-5.1)
[2016-08-27 04:10] LABS: HEMOGLOBIN 10.8 gm/dL (13.0-16.0); MEAN CELL VOLUME 91.6 FL (83-96); RED BLOOD COUNT 3.38 X10e (3.90-5.60); RED CELL DISTRIBUTION WIDTH 12.8 % (11.0-15.5); WHITE BLOOD COUNT 8.6 X10e3 (4.0-10.5)
[2016-08-27 04:12] LABS: CALCIUM SERUM 8.4 mg/dL (8.4-10.2); CREATININE SERUM 0.9 mg/dL (0.6-1.4); GLOM FILT RATE Estimated 95.8 mL/min (>60); MAGNESIUM 2.2 mg/dL (1.6-3.0)
[2016-08-27 04:50] LABS: FOLATE (FOLIC ACID) 14.3 ng/mL (>5.8)
[2016-08-28 04:17] LABS: BUN/CREATININE RATIO 36.66; CALCIUM SERUM 8.1 mg/dL (8.4-10.2); CREATININE SERUM 0.6 mg/dL (0.6-1.4); GLOM FILT RATE Estimated 113.2 mL/min (>60); POTASSIUM 3.8 mmol/L (3.5-5.1)
[2016-08-29 03:41] LABS: HEMATOCRIT 23.7 % (38.0-50.0); HEMOGLOBIN 8.1 gm/dL (13.0-16.0); MEAN CELL VOLUME 91.4 FL (83-96); MEAN CORPUSCULAR HEMOGLOBIN 31.2 PG (28-34); MEAN CORPUSCULAR HGB CONC 34.1 g/dL (30-36); MEAN PLATELET VOLUME 8.3 FL (6.5-11.5); RED BLOOD COUNT 2.59 X10e (3.90-5.60); RED CELL DISTRIBUTION WIDTH 12.7 % (11.0-15.5); WHITE BLOOD COUNT 5.7 X10e3 (4.0-10.5)
[2016-08-29 04:02] LABS: ALBUMIN SERUM 2.5 g/dL (3.5-5.0); BILIRUBIN,TOTAL 0.7 mg/dL (0.2-2.0); CALCIUM SERUM 7.9 mg/dL (8.4-10.2); CREATININE SERUM 0.7 mg/dL (0.6-1.4); GLOM FILT RATE Estimated 106.3 mL/min (>60); POTASSIUM 3.8 mmol/L (3.5-5.1); PROTEIN TOTAL SERUM 5.2 g/dL (6.0-8.3)
[2016-08-30 04:40] LABS: BASOPHIL% 0.4 % (0-2.5); EOSINOPHIL% 1.5 % (0.0-7.0); HEMATOCRIT 23.4 % (38.0-50.0); LYMPHOCYTE# 0.4 X10e3 (1.0-3.5); LYMPHOCYTE% 16.7 % (17.0-45.0); MEAN PLATELET VOLUME 7.7 FL (6.5-11.5); MONOCYTE# 0.1 X10e3 (0-1.0); MONOCYTE% 4.1 % (3.0-12.0); NEUTROPHIL% 77.3 % (40-75); RED BLOOD COUNT 2.57 X10e (3.90-5.60); RED CELL DISTRIBUTION WIDTH 13.1 % (11.0-15.5)
[2016-08-30 04:50] LABS: DIFF IND YES; PLATELET COUNT 81 X10e3 (140-420); WHITE BLOOD COUNT 2.6 X10e3 (4.0-10.5)
[2016-08-30 04:53] LABS: PLATELET ESTIMATE DECREASED (NORMAL)
[2016-08-30 04:54] LABS: HYPOCHROMIA SL
[2016-08-31 02:09] LABS: BASOPHIL% 0.5 % (0-2.5); EOSINOPHIL% 1.7 % (0.0-7.0); HEMATOCRIT 22.6 % (38.0-50.0); HEMOGLOBIN 7.7 gm/dL (13.0-16.0); LYMPHOCYTE# 0.4 X10e3 (1.0-3.5); LYMPHOCYTE% 20.1 % (17.0-45.0); MEAN CELL VOLUME 91.5 FL (83-96); MEAN CORPUSCULAR HGB CONC 33.9 g/dL (30-36); MEAN PLATELET VOLUME 7.2 FL (6.5-11.5); MONOCYTE# 0.1 X10e3 (0-1.0); MONOCYTE% 5.5 % (3.0-12.0); NEUTROPHIL# 1.5 X10e3 (1.5-7.1); NEUTROPHIL% 72.2 % (40-75); PLATELET COUNT 76 X10e3 (140-420); RED BLOOD COUNT 2.47 X10e (3.90-5.60); WHITE BLOOD COUNT 2.1 X10e3 (4.0-10.5)
[2016-08-31 02:10] LABS: DIFF IND NO
[2016-08-31 02:27] LABS: BUN/CREATININE RATIO 16.66; CALCIUM SERUM 7.9 mg/dL (8.4-10.2); CREATININE SERUM 0.6 mg/dL (0.6-1.4); GLOM FILT RATE Estimated 113.2 mL/min (>60); POTASSIUM 3.5 mmol/L (3.5-5.1)
[2016-09-01 03:17] LABS: BASOPHIL% 0.3 % (0-2.5); EOSINOPHIL% 1.6 % (0.0-7.0); HEMATOCRIT 26.1 % (38.0-50.0); HEMOGLOBIN 9.1 gm/dL (13.0-16.0); LYMPHOCYTE# 0.6 X10e3 (1.0-3.5); LYMPHOCYTE% 24.3 % (17.0-45.0); MEAN CELL VOLUME 90.7 FL (83-96); MEAN CORPUSCULAR HEMOGLOBIN 31.5 PG (28-34); MEAN CORPUSCULAR HGB CONC 34.7 g/dL (30-36); MEAN PLATELET VOLUME 7.4 FL (6.5-11.5); MONOCYTE# 0.1 X10e3 (0-1.0); MONOCYTE% 5.9 % (3.0-12.0); NEUTROPHIL# 1.7 X10e3 (1.5-7.1); NEUTROPHIL% 67.9 % (40-75); PLATELET COUNT 76 X10e3 (140-420); RED BLOOD COUNT 2.88 X10e (3.90-5.60); RED CELL DISTRIBUTION WIDTH 13.2 % (11.0-15.5); WHITE BLOOD COUNT 2.5 X10e3 (4.0-10.5)
[2016-09-01 03:19] LABS: BUN/CREATININE RATIO 16.66; CREATININE SERUM 0.6 mg/dL (0.6-1.4); GLOM FILT RATE Estimated 113.2 mL/min (>60); POTASSIUM 3.7 mmol/L (3.5-5.1)
[2016-09-01 03:20] LABS: DIFF IND NO
== END 2016-09-01 15:55 | DRG 870 ==
LOC: SED 17:42 → SEDOF 21:25 → C3A PCU 23:11 → CICCU3 08-08 13:02 → C4C 08-22 14:49
PROVIDERS: Family Medicine; Hospitalist; Internal Medicine; Internal Medicine Nephrology; Internal Medicine Pulmonary Disease; Nurse Practitioner; Nurse Practitioner Family; Physician Assistant; Physician Assistant Medical; Urology
PROC: 0BH17EZ Insertion of Endotracheal Airway into Trachea, Via Natural or Artificial Opening (ICD-10-PCS; principal; 2016-08-08)
PROC: 5A1955Z Respiratory Ventilation, Greater than 96 Consecutive Hours (ICD-10-PCS; 2016-08-08)
PROC: 02HV33Z Insertion of Infusion Device into Superior Vena Cava, Percutaneous Approach (ICD-10-PCS; 2016-08-10)
PROC: 0BB68ZX Excision of Right Lower Lobe Bronchus, Via Natural or Artificial Opening Endoscopic, Diagnostic (ICD-10-PCS; 2016-08-10)
PROC: 4A02X4A Measurement of Cardiac Electrical Activity, Guidance, External Approach (ICD-10-PCS; 2016-08-10)
PROC: 0BBB8ZX Excision of Left Lower Lobe Bronchus, Via Natural or Artificial Opening Endoscopic, Diagnostic (ICD-10-PCS; 2016-08-18)
PROC: 30233N1 Transfusion of Nonautologous Red Blood Cells into Peripheral Vein, Percutaneous Approach (ICD-10-PCS; 2016-08-31)
PROC: 02HV33Z Insertion of Infusion Device into Superior Vena Cava, Percutaneous Approach (ICD-10-PCS; 2016-09-01)
PROC: B518YZA Fluoroscopy of Superior Vena Cava using Other Contrast, Guidance (ICD-10-PCS; 2016-09-01)
PROC: B548ZZA Ultrasonography of Superior Vena Cava, Guidance (ICD-10-PCS; 2016-09-01)
DX: A41.9 Sepsis, unspecified organism (principal); J96.21 Acute and chronic respiratory failure with hypoxia; G92 Toxic encephalopathy; J15.212 Pneumonia due to Methicillin resistant Staphylococcus aureus; J96.22 Acute and chronic respiratory failure with hypercapnia; D61.811 Other drug-induced pancytopenia; R04.2 Hemoptysis; J44.1 Chronic obstructive pulmonary disease with (acute) exacerbation; F05 Delirium due to known physiological condition; E87.4 Mixed disorder of acid-base balance; E87.0 Hyperosmolality and hypernatremia; N17.9 Acute kidney failure, unspecified; I10 Essential (primary) hypertension; F17.210 Nicotine dependence, cigarettes, uncomplicated; K21.9 Gastro-esophageal reflux disease without esophagitis; Z90.49 Acquired absence of other specified parts of digestive tract; F41.9 Anxiety disorder, unspecified; F39 Unspecified mood [affective] disorder; F29 Unspecified psychosis not due to a substance or known physiological condition; G47.33 Obstructive sleep apnea (adult) (pediatric); R33.9 Retention of urine, unspecified; E11.9 Type 2 diabetes mellitus without complications; E87.6 Hypokalemia; T36.95XA Adverse effect of unspecified systemic antibiotic, initial encounter
CPT/HCPCS: 36415; 36600; 70450; 71010; 71020; 71250; 71260; 74000; 76770; 76937; 77001; 80048; 80053; 80202; 81003; 82270; 82308; 82550; 82553; 82607; 82746; 82803; 82947; 83036; 83520; 83605; 83735; 83874; 83880; 83935; 84100; 84132; 84300; 84443; 84484; 85025; 85027; 86021; 86038; 86039; 86334; 86850; 86900; 86901; 86923; 87040; 87070; 87077; 87086; 87102; 87116; 87186; 87205; 87206; 87493; 87804; 87806; 88108; 88305; 89190; 90715; 92526; 92610; 93005; 93971; 94002; 94003; 94010; 94640; 94660; 94760; 94761; 96374; 96375; 97110; 97116; 97163; 97167; 97530; 97535; 99285; C1751; G8978-GP; G8979-GP; G8987-GO; G8988-GO; G8996-GN; G8997-GN; G8998-GN; J0171; J0360; J0456; J0696; J1630; J1642; J1650; J1815; J1940; J2020; J2060; J2270; J2543; J2920; J2930; J3370; J3475; J3490; P9016; Q9967